=== PATIENT | male | born 1995 | race Caucasian/White ===

== ENCOUNTER 2020-01-13 17:35 | Inpatient (IN) | payer BC, SELFPAY ==
[2020-01-13] VITALS (9 sets, daily range): BP systolic 110–146; BP diastolic 85–97; PULSE 106–125; RESP 18–26; TEMP 37.6–38.8; O2SAT 95–97; BMI 43.0; BMI 42.7
[2020-01-13] MEDS: Acetaminophen 500 MG Tablet 1000 MG PO (17:57)
[2020-01-13] MEDS: Ondansetron 4 MG/2 ML Vial IV (17:58)
--- NOTE | 2020-01-13 18:02 | ED.DCSUM_ITS ---
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, he has no specific direct exposure to any of them, he has no history of [place] PE DVT shortness of breath COPD or any cardiopulmonary disorders his only conditions bipolar disorder which is well controlled he simply reports persistent harsh cough vomiting body ache and fever He presents with a heart rate of 125 temperature 101.8 pulse ox 97% on room air awake and alert blood pressure within normal range Past Medical History - Allergies and Home Meds Allergies/Adverse Reactions: Allergies No Known Allergies Allergy (Verified 06/13/16 18:28) Primary Care Physician: Godfrey Lima MD [STAFF PHYSICIAN] - Past Medical History: - - Denies except for bipolar disorder Smoking Status: Never smoker Review of Systems General: Reports: Fever. Denies: Chills, Sweats Eyes: Denies: Visual changes - bilaterally, Diplopia ENT: Denies: Rhinorrhea, Sore throat Cardiovascular: Denies: Chest pain, Palpitations Respiratory: Reports: Dyspnea, Cough. Denies: Dyspnea on exertion Gastrointestinal: Reports: Vomiting. Denies: Abdominal pain, Nausea, Diarrhea, Melena, Hematochezia Genitourinary: Denies: Dysuria, Hematuria, Frequency Musculoskeletal: Denies: Back pain, Extremity Pain Skin: Denies: Rash, Wounds Neurological: Denies: Headache, Weakness, Numbness Physical Exam Vital Signs/Narrative: Vital Signs Temp Pulse Resp BP Pulse Ox 01/13/20 17:40 101.8 F H 125 H 18 137/96 H 96 01/13/20 17:37 101.8 F H 125 H 18 137/96 H 96 General: Well nourished, Well developed, No Acute Distress Head: Normocephalic, Atraumatic Eyes: Perrl, EOMI ENT: Moist mucous membranes, No rhinorrhea Neck: Supple, Nontender Cardiovascular: Regular rate, Regular rhythm, No murmurs, Tachycardia Respiratory: No distress, CTA bilaterally, Chest nontender Abdomen: Soft, Nontender, Nondistended, Normal bowel sounds Back: Nontender, Normal Inspection Extremities: Nontender, No edema Skin: Normal color, No rash Neurological: Alert, Oriented x3, Cranial nerves II-XII grossly intact, Normal Strength, Normal Sensation Psychological: Normal affect, Normal Mood Diagnostic/Tx/Re-eval - Medical Decision Making Given all the above he will go ED screening evaluation labs x-ray fluids albuterol via handheld puffer antipyretics Patient's ED screening evaluation shows slight elevation of the white blood cell count creatinine slightly elevated, no old labs available chest x-ray unremarkable he states he still has the cough and the body ache his heart rates down from 125 to about 105 given all the above given the concern for coronavirus other occult infections we spoke with the hospitalist arrange for admission for further management Admit stable Impression fever cough suspect COVID-19 ED Disposition - Plan for ED Patient: Diagnosis: Fever cough suspect COVID-19 Referrals: Godfrey Lima MD [STAFF PHYSICIAN] -
[2020-01-13 18:05] LABS: Absolute Lymphocyte Count 0.91 X10^3/uL (0.83-4.51); Absolute Neutrophil Count 11.4 X10^3/uL (2.0-7.7); Basophil# 0.02 X10^3/uL; Basophil% 0.1 % (0-1); Eosinophil# 0.06 X10^3/uL; Eosinophils% 0.4 % (0-5); Hemoglobin 14.6 g/dL (13.0-16.5); Lymphocyte # 0.91 X10^3/ul (4.0); Lymphocyte % 6.8 % (19-41); Mean Corpuscular Hgb 28.2 pg (27.0-32.0); Mean Corpuscular Volume 83.2 fL (80-94); Mean Platelet Vol. 10.9 fl (6.2-12.0); Monocyte# 0.98 X10^3/uL; Monocyte% 7.3 % (0-10); NRBC Flagged by Analyzer 0 % (0-5); Neutrophil # 11.37 X10^3/uL (2.7-7.7); Neutrophil % 85.1 % (47-70); Platelet Count 257 K/mm3 (150-450); RBC Distribution Width SD 42.5 fl (35.1-43.9); Red Blood Count 5.17 M/mm3 (4.6-6.2); White Blood Count 13.4 K/mm3 (4.4-11.0)
[2020-01-13 18:23] LABS: ALB/GLOB Ratio 0.7 RATIO (0.9-2.4); AST(SGOT) 51 U/L (15-37); Alanine Aminotransfer ALT/SGPT 32 U/L (16-61); Albumin, Serum 3.7 g/dL (3.2-5.0); Alkaline Phosphatase 95 U/L (45-117); Anion Gap 8 (5-15); BUN 11 mg/dL (7-18); BUN/Creat Ratio 8.3 RATIO (10-20); Calcium,Total 9.4 mg/dL (8.5-10.1); Chloride 101 mmol/L (98-107); Creatinine, Serum 1.32 mg/dL (0.70-1.30); EST Glomerular Filtration Rate 71 mL/min (>60); Est Glom Filt Rate - Afr Amer 86 mL/min (>60); Estimated Creatinine Clearance 95.53 ml/min; Globulin 5.2 g/dL (2.2-4.2); Glucose 107 mg/dL (74-106); Potassium 3.7 mmol/L (3.5-5.1); Protein, Total 8.9 g/dL (6.4-8.2); Sodium Level 133 mmol/L (136-145)
[2020-01-13 18:25] LABS: Lactic Acid 0.9 mmol/L (0.4-1.9)
--- NOTE | 2020-01-13 18:35 | RAD_ITS ---
STUDY: X-RAY CHEST REASON FOR EXAM: Male, 25 years old. POSITIVE COVID. FEVER AND COUGH. TECHNIQUE: Single AP portable view of the chest. COMPARISON: 10/23/2016. FINDINGS: Normal lung volumes. Focal pulmonary opacity in the left lung base not present previously. This could represent focal atelectasis or infiltrate. No effusions. Right lung is clear. Normal size heart. Normal mediastinum and autumn. Normal visualized pulmonary arteries. Normal visualized aortic arch and descending thoracic aorta. There is mild dextroscoliosis of the thoracic spine. Normal visualized ribs, clavicles, and shoulders. There is no demonstrated abnormality of the visualized soft tissue structures of the upper abdomen. RAD/Chest 1 View (Portable) IMPRESSION: Focal pulmonary opacity in the left lung base not present previously. This could represent focal atelectasis or infiltrate. Suggest CT scan for further evaluation. Electronically Signed: Bairon Chow MD at 18:57 EST , Service support ,
--- NOTE | 2020-01-13 19:15 | PCM.HP.STD ---
Problem List (1) Sepsis Status: Acute Qualifiers: Sepsis type: sepsis due to unspecified organism Sepsis acute organ dysfunction status: unspecified Qualified Code(s): A41.9 - Sepsis, unspecified organism (2) Suspected COVID-19 virus infection Status: Acute (3) Pneumonia Status: Acute Qualifiers: Pneumonia type: due to unspecified organism Laterality: unspecified laterality Lung location: unspecified part of lung Qualified Code(s): J18.9 - Pneumonia, unspecified organism (4) Morbid obesity Status: Chronic (5) Bipolar disorder Status: Chronic Qualifiers: Active/Remission status: remission status unspecified Qualified Code(s): F31.9 - Bipolar disorder, unspecified (6) Cannabis use disorder, mild, abuse Status: Chronic History of Present Illness Date of Admission: 01/13/20 Chief Complaint: Fever, body aches, Nausea, Abdominal cramping, Cough, Dyspnea, Headache The patient is a 25 y/o M w/ PMHx: Morbid Obesity, Bipolar disorder who presents to the [facility] ED on 01/13/20, [employer] or [employer]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 He noted having been tested 2 weeks prior per campus protocol and was negative at that time. 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 work-up in the ED included T101.8, heart rate 125, BP 137/96, respiratory rate 18, 96% on room air, CBC with WC 13.4, hemoglobin 14.6, platelet 257 with left shift, no evidence of lymphopenia, CMP with sodium 133, BUN/1011/1.32, glucose 107, lactic acid 0.9, total bilirubin 0.80, AST/ALT 51/32, Covid testing pending, chest x-ray with a focal pulmonary opacity left lung base possibly atelectasis versus infiltrate. In the ED patient administered normal saline, Zofran, morphine, albuterol inhaler ration x1, Tylenol. Past Medical History Past Medical History (Chronic Problems): Chronic Problems Morbid obesity (Chronic) Bipolar disorder (Chronic) Cannabis use disorder, mild, abuse (Chronic) Allergies No Known Allergies Allergy (Verified 06/13/16 18:28) Home Medications: Ambulatory Orders Medication Instructions Recorded No Known/Unobtainable [No Known 06/13/16 Home Medications] Surgical History: no surgical history Psychiatric History: Anxiety, Bipolar, Depression Lives: - - Patient currently lives in the dorms at [facility]. Smoking Status: Never smoker Tobacco Use: Non-smoker Alcohol: None Drugs: Marijuana - Patient notes occasional marijuana usage. - *Family History Maternal History Items: - - Mother with a history of thyroid disease. Paternal History Items: High Cholesterol, Hypertension Review of Systems Constitutional: Reports: Anorexia, Chills, Fever, Malaise, Weakness, Fatigue. Denies: Weight Change HEENT: Reports: Head Aches, Sinus Congestion. Denies: Sinus Drainage Cardiovascular: Denies: Chest Pain, Palpitations Respiratory: Reports: Cough, Shortness of Breath, Shortness of breath upon exertion. Denies: Shortness of breath at rest, Sputum production, Wheezing Gastrointestinal: Reports: Abdominal Pain, Nausea. Denies: Constipation, Diarrhea, Vomiting Genitourinary: Denies: Dysuria Musculoskeletal: Reports: Joint Pain, Muscle pain. Denies: Joint Tenderness Skin: Denies: Rash, Wounds Neurological: Denies: Numbness, Tingling, Focal weakness Psychiatric: Reports: Anxiety, Depression. Denies: Homicidal Ideations, Suicidal Ideations Hematologic/ Lymphatic: Denies: Easy Bruising, Easy Bleeding VTE Information - Inpt Only VTE Present on Admission: No VTE Mechan Device Prophylaxis: SCD's VTE Pharm Prophylaxis ordered?: Yes Subjective: Patient seated upright in ED bed, fatigued appearing, occasional dry cough, mildly diaphoretic, still somewhat tachycardic. Objective: Physical Examination: General: awake, alert, oriented x 3 and cooperative, seated upright in the ED bed, fatigued, ill-appearing. Skin: Flushed skin color, normal turgor, no icterus, no cyanosis. HEENT: AT/NC, EOMI, PERRLA, dry MM, no carotid bruits or JVD noted however thickened neck makes examination difficult. Lungs: Diminished breath sounds bilaterally, greater bases, moderate effort, occasional dry harsh coughing, no rales, wheezing or rhonchi. Heart: Tachycardic with regular rhythm; no gallop, rub audible. Abdomen: soft, obese, denies discomfort with palpation with no rebound or guarding, ND, normal BS, no HSM. Extremities: no cyanosis, clubbing, or edema. Neurological: patient awake, alert, oriented x 3; cognitive function intact; pupils equally reactive to light and accomodation; cranial nerves II-XII grossly normal, moving all 4 extremities, no focal deficits, strength moderately to severely global decrease secondary to acute presentation. Psychiatric: affect appears fatigued, ill-appearing, no acute evidence of depressive or anxiety feelings. - Physical Exam Vitals/I&O's: Vital Signs Temp Pulse Resp BP Pulse Ox 101.8 F H 125 H 18 137/96 H 96 01/13/20 17:40 01/13/20 17:40 01/13/20 17:40 01/13/20 17:40 01/13/20 17:40 Oxygen Delivery Method Room Air Weight: 317 lb 0.395 oz Body Mass Index (BMI) 43.0 Laboratory Results 01/13/20 17:55: WBC 13.4 H, RBC 5.17, Hgb 14.6, Hct 43.0, MCV 83.2, MCH 28.2, MCHC 34.0, RDW Std Deviation 42.5, RDW Coeff of Bulmaro 14.0, Plt Count 257, MPV 10.9, Immature Gran % (Auto) 0.300, Neut % (Auto) 85.1 H, Lymph % (Auto) 6.8 L, Bibb % (Auto) 7.3, Eos % (Auto) 0.4, Baso % (Auto) 0.1, Absolute Neuts (auto) 11.4 H, Absolute Lymphs (auto) 0.91, Nucleated RBC % 0 01/13/20 17:55: Sodium 133 L, Potassium 3.7, Chloride 101, Carbon Dioxide 24.0, Anion Gap 8, BUN 11, Creatinine 1.32 H, Estim Creat Clear Calc 95.53, Est GFR (MDRD) Af Amer 86, Est GFR (MDRD) Non-Af 71, BUN/Creatinine Ratio 8.3 L, Glucose 107 H, Calcium 9.4, Total Bilirubin 0.80, AST 51 H, ALT 32, Alkaline Phosphatase 95, Total Protein 8.9 H, Albumin 3.7, Globulin 5.2 H, Albumin/Globulin Ratio 0.7 L 01/13/20 17:55: Lactic Acid 0.9 01/13/20 18:18: COVID-19 (FRANDY) Pending Current Medications Sodium Chloride () 1,000 mls @ 999 mls/hr IV .Q1H1M ONE Stop: 01/13/20 19:37 Assessment/Plan All Active Problems Sepsis (Acute) Suspected COVID-19 virus infection (Acute) Pneumonia (Acute) The patient is a 25 y/o M w/ PMHx: Morbid Obesity, Bipolar disorder who presents to the [facility] ED on 01/13/20, [employer] or [employer]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 1. Acute Sepsis secondary to LLL Pneumonia, Possible CAP, Higher Suspicion Acute Viral Syndrome, COVID-19: Despite negative COVID ED testing, high suspicion and given symptoms only x nearing 48 hours with high risk environment, still feel likelihood of true positive COVID status, will request ID input especially given patient in close contact with [employer] girls [employer] at local [facility] 5 days preceding his onset of symptoms. Will plan to continue with admission to COVID unit, maintain on precautions, maintain on oxygen with wean as tolerated to room air, continue PRN albuterol, maintain on IV Rocephin and Azithromycin with pending COVID lab panel still higher suspicion for positive Covid status, de-escalate off antibiotic therapy once appropriate, HOB, IS parameters w/ pending sputum culture, respiratory viral panel and urine antigens, will obtain procalcitonin, fibrinogen, INR, BNP, CRP, CPK, Ferritin, LDH, d-dimer, continue supportive care including q 2 hour turning including prone given no prone bed availability and judicious hydration, closely monitor for worsening status for ARDS and multiorgan failure. Given no evidence of hypoxia will hold on addition of decadron, may add if appropriate. 2. Hyponatremia, mild: Admission sodium 133, suspect likely dehydrated, judiciously hydrating given suspected Covid status, repeat CMP in a.m. 3. Suspected renal insufficiency: Admission BUN/creatinine 01/09.32, prior baseline noted 1.1, continue judicious hydration given suspected Covid status, repeat CMP in a.m. 4. Bipolar disorder: Notes well controlled, not on medications, continue new to encourage outpatient close follow-up as needed. 5. Cannabis usage, intermittent: Encouraged cessation. 6. Morbid Obesity: Weight loss and lifestyle changes encouraged. 7. DVT prophylaxis: SCDs, Lovenox. OBSV E&M: [id number] Initial observation care L3
[2020-01-13 19:46] LABS: Probe Check PASS; Specimen Processing Control PASS
[2020-01-13] MEDS: 0.9% Normal Saline 1,000 ML 999 ML IV (19:47)
[2020-01-13] MEDS: Morphine 4 MG/ML Syringe IV (19:47)
--- NOTE | 2020-01-13 20:09 | ED.RN ---
pt ambulated in room. starting pulse ox 96. hr 117. pt ambulated around bed 8 times. denies sob. pulse ox stays consistent at 95%. hr increased to 127
[2020-01-13 22:23] LABS: International Normalized Ratio 1.3; Prothrombin Time (Protime)PT. 15.2 SECONDS (11.7-14.9)
[2020-01-13 22:24] LABS: Fibrinogen 785 mg/dl (203-444)
[2020-01-13 22:37] LABS: D-Dimer Quantitative (DVT/PE) 0.92 FEU/ug/m (0.27-0.49)
[2020-01-13] MEDS: 0.9% Normal Saline 1,000 ML 125 ML IV (22:42)
[2020-01-13] MEDS: Famotidine 20 MG Tablet PO (22:42)
[2020-01-13] MEDS: Enoxaparin 40 MG/0.4 ML Syringe SC (22:42)
[2020-01-13] MEDS: 0.9% Saline Lock 10 ML Syringe IV ×2 (22:44→23:30)
[2020-01-13 22:50] LABS: Ferritin 312 ng/mL (26-388); LDH 264 U/L (87-241)
[2020-01-14] VITALS (8 sets, daily range): BP systolic 117–140; BP diastolic 64–83; PULSE 98–118; RESP 17–27; TEMP 37.2–39.4; O2SAT 94–98
[2020-01-14] MEDS: 0.9% Saline Lock 10 ML Syringe IV ×5 (00:37→22:24)
[2020-01-14] MEDS: Ondansetron 4 MG/2 ML Vial IV (00:37)
[2020-01-14] MEDS: guaiFENesin 10 ML UDC (200MG/10ML) 20 ML PO ×4 (00:40→22:32)
[2020-01-14] MEDS: 0.9% Normal Saline 1,000 ML 999 ML IV (04:46)
[2020-01-14] MEDS: Ketorolac 15 MG/ML Vial IV (04:51)
[2020-01-14 06:33] LABS: Absolute Lymphocyte Count 0.74 X10^3/uL (0.83-4.51); Absolute Neutrophil Count 10.6 X10^3/uL (2.0-7.7); Basophil# 0.02 X10^3/uL; Basophil% 0.2 % (0-1); Hemoglobin 12.4 g/dL (13.0-16.5); Lymphocyte # 0.74 X10^3/ul (4.0); Mean Corp Hgb Conc 32.6 g/dL (32-36); Mean Corpuscular Hgb 28.1 pg (27.0-32.0); Mean Corpuscular Volume 86.2 fL (80-94); Mean Platelet Vol. 11.3 fl (6.2-12.0); Monocyte# 0.89 X10^3/uL; Monocyte% 7.2 % (0-10); NRBC Flagged by Analyzer 0 % (0-5); Neutrophil # 10.62 X10^3/uL (2.7-7.7); POSITIVE MORPHOLOGY YES; Platelet Count 224 K/mm3 (150-450); RBC Distribution Width SD 44.3 fl (35.1-43.9); Red Blood Count 4.41 M/mm3 (4.6-6.2); White Blood Count 12.3 K/mm3 (4.4-11.0)
[2020-01-14 06:39] LABS: Differential Indicated SCAN CRITERIA MET
[2020-01-14 06:56] LABS: Differential Comment SCANNED; Platelet Estimate ADEQUATE (ADEQ)
[2020-01-14 07:02] LABS: ALB/GLOB Ratio 0.6 RATIO (0.9-2.4); AST(SGOT) 47 U/L (15-37); Alanine Aminotransfer ALT/SGPT 29 U/L (16-61); Albumin, Serum 2.9 g/dL (3.2-5.0); Alkaline Phosphatase 76 U/L (45-117); Anion Gap 10 (5-15); BUN 10 mg/dL (7-18); BUN/Creat Ratio 9.8 RATIO (10-20); Calcium,Total 7.8 mg/dL (8.5-10.1); Chloride 103 mmol/L (98-107); Creatinine, Serum 1.02 mg/dL (0.70-1.30); EST Glomerular Filtration Rate 96 mL/min (>60); Est Glom Filt Rate - Afr Amer 116 mL/min (>60); Estimated Creatinine Clearance 123.63 ml/min; Globulin 4.6 g/dL (2.2-4.2); Glucose 112 mg/dL (74-106); Potassium 3.6 mmol/L (3.5-5.1); Protein, Total 7.5 g/dL (6.4-8.2); Sodium Level 135 mmol/L (136-145)
[2020-01-14] MEDS: Enoxaparin 40 MG/0.4 ML Syringe SC ×2 (08:26→19:56)
[2020-01-14] MEDS: Famotidine 20 MG Tablet PO ×2 (08:26→19:56)
[2020-01-14] MEDS: Ensure Clear 120 ML Liquid PO (10:11)
--- NOTE | 2020-01-14 11:21 | PN_ITS ---
<MansoorHeather ENGRAVING SUPERVISOR - Last Filed: 01/14/20 11:33> Patient Problems: Active and Suspected Problems Sepsis (Acute) Suspected COVID-19 virus infection (Acute) Pneumonia (Acute) Subjective: Patient seen and examined. Reports general malaise. Reports dry cough, headache, fever, general body aches. Denies significant shortness of breath. - Physical Exam Vitals/I&O's: Vital Signs Temp Pulse Resp BP Pulse Ox 99.3 F H 104 H 18 120/78 95 01/14/20 08:24 01/14/20 08:33 01/14/20 08:24 01/14/20 08:24 01/14/20 08:24 Oxygen Delivery Method Room Air Weight: 315 lb 0.649 oz Body Mass Index (BMI) 42.7 Intake and Output for Last 24 Hours 01/12/20 01/13/20 01/14/20 23:59 23:59 23:59 Intake Total 1759.17 / 1759.17 2845.83 / 2845.83 Output Total Balance 1759.17 / 1759.17 2844.83 / 2844.83 General: Alert, Oriented x3, Cooperative HEENT: Atraumatic, PERRLA, EOMI, Normocephalic Neck: Supple, No JVD, Negative Carotid Bruits Lungs: Clear to auscultation, Diminished Cardiovascular: Regular Rhythm, No murmurs, Tachycardic Abdomen: Bowel Sounds Present, Soft, Non Tender Extremities: No clubbing, No cyanosis, No edema, Capillary Refill Less than 3 Seconds Skin: No rashes, No breakdown Musculoskeletal: No Tenderness to Palpation of Joints or Extremities Neurological: Cranial nerves II-XII grossly intact, Neuro grossly intact Psych/Mental Status: Normal Affect, Appropriate Microbiology Past 72 Hours 01/14/20 00:45 Sputum, Expectorated/Coughed Gram Stain - Final 01/14/20 00:35 Urine, Clean Catch Legionella Antigen - Final 01/14/20 00:35 Urine, Clean Catch Streptococcus pneumoniae Antigen (M - Final 01/13/20 18:18 Interface Orders Respiratory Panel (PCR) - Final Laboratory Results 01/13/20 17:55: WBC 13.4 H, RBC 5.17, Hgb 14.6, Hct 43.0, MCV 83.2, MCH 28.2, MCHC 34.0, RDW Std Deviation 42.5, RDW Coeff of Bulmaro 14.0, Plt Count 257, MPV 10.9, Immature Gran % (Auto) 0.300, Neut % (Auto) 85.1 H, Lymph % (Auto) 6.8 L, [place] % (Auto) 7.3, Eos % (Auto) 0.4, Baso % (Auto) 0.1, Absolute Neuts (auto) 11.4 H, Absolute Lymphs (auto) 0.91, Nucleated RBC % 0 01/13/20 17:55: Sodium 133 L, Potassium 3.7, Chloride 101, Carbon Dioxide 24.0, Anion Gap 8, BUN 11, Creatinine 1.32 H, Estim Creat Clear Calc 95.53, Est GFR (MDRD) Af Amer 86, Est GFR (MDRD) Non-Af 71, BUN/Creatinine Ratio 8.3 L, Glucose 107 H, Calcium 9.4, Total Bilirubin 0.80, AST 51 H, ALT 32, Alkaline Phosphatase 95, Total Protein 8.9 H, Albumin 3.7, Globulin 5.2 H, Albumin/Globulin Ratio 0.7 L 01/13/20 17:55: Lactic Acid 0.9 01/13/20 17:55: B-Natriuretic Peptide Pending 01/13/20 17:55: PT 15.2 H, INR 1.3, Fibrinogen 785 H, D-Dimer Quant (PE/DVT) 0.92 H* 01/13/20 17:55: Ferritin 312, Lactate Dehydrogenase 264 H, Troponin I < 0.015, C-React Prot Ext Range 122.00 H 01/13/20 17:55: Procalcitonin Pending 01/13/20 18:18: COVID-19 (FRANDY) Negative 01/14/20 05:25: WBC 12.3 H, RBC 4.41 L, Hgb 12.4 L, Hct 38.0 L, MCV 86.2, MCH 28.1, MCHC 32.6, RDW Std Deviation 44.3 H, RDW Coeff of Bulmaro 14.0, Plt Count 224, MPV 11.3, Immature Gran % (Auto) 0.600, Neut % (Auto) 86.0 H, Lymph % (Auto) 6.0 L, [place] % (Auto) 7.2, Eos % (Auto) 0.0, Baso % (Auto) 0.2, Absolute Neuts (auto) 10.6 H, Absolute Lymphs (auto) 0.74 L, Nucleated RBC % 0, Differential Comment SCANNED, Platelet Estimate ADEQUATE 01/14/20 05:25: Sodium 135 L, Potassium 3.6, Chloride 103, Carbon Dioxide 22.0, Anion Gap 10, BUN 10, Creatinine 1.02, Estim Creat Clear Calc 123.63, Est GFR (MDRD) Af Amer 116, Est GFR (MDRD) Non-Af 96, BUN/Creatinine Ratio 9.8 L, Glucose 112 H, Calcium 7.8 L, Total Bilirubin 0.50, AST 47 H, ALT 29, Alkaline Phosphatase 76, Total Protein 7.5, Albumin 2.9 L, Globulin 4.6 H, Albumin/Globulin Ratio 0.6 L Current Medications Acetaminophen (Acetaminophen 325 Mg Tablet) 650 mg PO Q6H PRN PRN PRN Reason: Pain Score 1-10/Temp > 100.7 F Al Hydroxide/Mg Hydroxide (Mag Hydrox/Al Hydrox/Simeth 30 Ml Udc) 30 ml PO Q6H PRN PRN PRN Reason: Gastric Burning Albuterol Sulfate (Albuterol Ih 8.5 Gm (Proair) Inhaler (200 Puffs)) 2 puff INHALATION Q4H PRN PRN PRN Reason: dyspnea, wheezing Enoxaparin Sodium (Enoxaparin 40 Mg/0.4 Ml Syringe) 40 mg SC BID [facility] Last Admin: 01/14/20 08:26 Dose: 40 mg Documented by: Famotidine (Famotidine 20 Mg Tablet) 20 mg PO BID [facility] Last Admin: 01/14/20 08:26 Dose: 20 mg Documented by: Guaifenesin (Guaifenesin 10 Ml Udc (200mg/10ml)) 20 ml PO Q4H PRN PRN PRN Reason: COUGH Last Admin: 01/14/20 10:11 Dose: 20 ml Documented by: Ceftriaxone Sodium 2 gm/ (Sodium Chloride) 50 mls @ 100 mls/hr IV Q24H [facility] Last Infusion: 01/14/20 01:30 Dose: Infused Documented by: Azithromycin 500 mg/ Dextrose 255 mls @ 250 mls/hr IV Q24H [facility] Last Infusion: 01/13/20 23:44 Dose: Infused Documented by: Sodium Chloride () 250 mls @ 15 mls/hr IV .[id number] PRN PRN Reason: Saline Flush Sodium Chloride () 250 mls @ 15 mls/hr IV .[id number] PRN PRN Reason: Additional IVPB Infusion Magnesium Hydroxide (Magnesium Hydroxide 30 Ml Udc) 30 ml PO DAILY PRN PRN PRN Reason: Constipation Melatonin (Melatonin 3 Mg Tablet) 3 mg PO QHS PRN PRN PRN Reason: INSOMNIA Ondansetron HCl (Ondansetron 4 Mg/2 Ml Vial) 4 mg IV Q8H PRN PRN PRN Reason: NAUSEA/VOMITING Last Admin: 01/14/20 00:37 Dose: 4 mg Documented by: Prochlorperazine Edisylate (Prochlorperazine 10 Mg/2 Ml Vial) 5 mg IV Q4H PRN PRN PRN Reason: Breakthrough nausea/vomiting Psyllium Hydrophilic Mucilloid (Psyllium 1 Packet) 1 packet PO DAILY PRN PRN PRN Reason: Constipation Senna/Docusate Sodium (Senna/Docusate Sodium 1 Tablet) 2 tablet PO BID PRN PRN PRN Reason: Constipation Sodium Chloride (0.9% Saline Lock 10 Ml Syringe) 10 - 40 ml IV UD PRN PRN Reason: SALINE FLUSH Last Admin: 01/14/20 11:12 Dose: 10 ml Documented by: Throat Lozenges (Benzocaine/Menthol 1 Lozenge) 1 lozenge MUCOUS MEM Q2H PRN PRN PRN Reason: SORE THROAT Medical Necessity - Tobacco Use Smoking Status: Never smoker Tobacco Use: Non-smoker Assessment/Plan All Active Problems Sepsis (Acute) Suspected COVID-19 virus infection (Acute) Pneumonia (Acute) 1. Acute sepsis secondary to left lower lobe pneumonia with possible viral syndrome/[id number] of chest shows left lower lobe consolidation. Atypical for Covid pneumonia. Negative for PE. Covid negative however less than 48 hours symptom onset. Infectious disease consulted. Continue IV azithromycin and IV Rocephin. As needed albuterol inhaler. Possible repeat Covid testing pending ID recommendations. 2. Mild dehydration- resolved with IV fluids. 3. Bipolar disorder-not on regimen. 4. Intermittent cannabis use-encouraged cessation. 5. Morbid obesity-encouraged diet and lifestyle modifications. DVT prophylaxis-SCDs, Lovenox This patient was seen by [facility] Hanley under the supervision of Dr. García. <Melvin García - Last Filed: 01/14/20 14:37> - Physical Exam Vitals/I&O's: Vital Signs Temp Pulse Resp BP Pulse Ox 99.5 F H 102 H 18 129/71 H 98 01/14/20 14:15 01/14/20 14:15 01/14/20 14:15 01/14/20 14:15 01/14/20 14:15 Oxygen Delivery Method Room Air Weight: 142.9 kg Body Mass Index (BMI) 42.7 Intake and Output for Last 24 Hours 01/12/20 01/13/20 01/14/20 23:59 23:59 23:59 Intake Total 1759.17 / 1759.17 3445.83 / 3445.83 Output Total Balance 1759.17 / 1759.17 3444.83 / 3444.83 Microbiology Past 72 Hours 01/14/20 00:45 Sputum, Expectorated/Coughed Gram Stain - Final 01/14/20 00:35 Urine, Clean Catch Legionella Antigen - Final 01/14/20 00:35 Urine, Clean Catch Streptococcus pneumoniae Antigen (M - Final 01/13/20 18:18 Interface Orders Respiratory Panel (PCR) - Final Laboratory Results 01/13/20 17:55: WBC 13.4 H, RBC 5.17, Hgb 14.6, Hct 43.0, MCV 83.2, MCH 28.2, MCHC 34.0, RDW Std Deviation 42.5, RDW Coeff of Bulmaro 14.0, Plt Count 257, MPV 10.9, Immature Gran % (Auto) 0.300, Neut % (Auto) 85.1 H, Lymph % (Auto) 6.8 L, [place] % (Auto) 7.3, Eos % (Auto) 0.4, Baso % (Auto) 0.1, Absolute Neuts (auto) 11.4 H, Absolute Lymphs (auto) 0.91, Nucleated RBC % 0 01/13/20 17:55: Sodium 133 L, Potassium 3.7, Chloride 101, Carbon Dioxide 24.0, Anion Gap 8, BUN 11, Creatinine 1.32 H, Estim Creat Clear Calc 95.53, Est GFR (MDRD) Af Amer 86, Est GFR (MDRD) Non-Af 71, BUN/Creatinine Ratio 8.3 L, Glucose 107 H, Calcium 9.4, Total Bilirubin 0.80, AST 51 H, ALT 32, Alkaline Phosphatase 95, Total Protein 8.9 H, Albumin 3.7, Globulin 5.2 H, Albumin/Globulin Ratio 0.7 L 01/13/20 17:55: Lactic Acid 0.9 01/13/20 17:55: B-Natriuretic Peptide 2.3 01/13/20 17:55: PT 15.2 H, INR 1.3, Fibrinogen 785 H, D-Dimer Quant (PE/DVT) 0.92 H* 01/13/20 17:55: Ferritin 312, Lactate Dehydrogenase 264 H, Troponin I < 0.015, C-React Prot Ext Range 122.00 H 01/13/20 17:55: Procalcitonin 0.14 H 01/13/20 18:18: COVID-19 (FRANDY) Negative 01/14/20 05:25: WBC 12.3 H, RBC 4.41 L, Hgb 12.4 L, Hct 38.0 L, MCV 86.2, MCH 28.1, MCHC 32.6, RDW Std Deviation 44.3 H, RDW Coeff of Bulmaro 14.0, Plt Count 224, MPV 11.3, Immature Gran % (Auto) 0.600, Neut % (Auto) 86.0 H, Lymph % (Auto) 6.0 L, [place] % (Auto) 7.2, Eos % (Auto) 0.0, Baso % (Auto) 0.2, Absolute Neuts (auto) 10.6 H, Absolute Lymphs (auto) 0.74 L, Nucleated RBC % 0, Differential Comment SCANNED, Platelet Estimate ADEQUATE 01/14/20 05:25: Sodium 135 L, Potassium 3.6, Chloride 103, Carbon Dioxide 22.0, Anion Gap 10, BUN 10, Creatinine 1.02, Estim Creat Clear Calc 123.63, Est GFR (MDRD) Af Amer 116, Est GFR (MDRD) Non-Af 96, BUN/Creatinine Ratio 9.8 L, Glucose 112 H, Calcium 7.8 L, Total Bilirubin 0.50, AST 47 H, ALT 29, Alkaline Phosphatase 76, Total Protein 7.5, Albumin 2.9 L, Globulin 4.6 H, Albumin/Globulin Ratio 0.6 L Current Medications Acetaminophen (Acetaminophen 325 Mg Tablet) 650 mg PO Q6H PRN PRN PRN Reason: Pain Score 1-10/Temp > 100.7 F Last Admin: 01/14/20 11:24 Dose: 650 mg Documented by: Al Hydroxide/Mg Hydroxide (Mag Hydrox/Al Hydrox/Simeth 30 Ml Udc) 30 ml PO Q6H PRN PRN PRN Reason: Gastric Burning Albuterol Sulfate (Albuterol Ih 8.5 Gm (Proair) Inhaler (200 Puffs)) 2 puff INHALATION Q4H PRN PRN PRN Reason: dyspnea, wheezing Enoxaparin Sodium (Enoxaparin 40 Mg/0.4 Ml Syringe) 40 mg SC BID [facility] Last Admin: 01/14/20 08:26 Dose: 40 mg Documented by: Famotidine (Famotidine 20 Mg Tablet) 20 mg PO BID [facility] Last Admin: 01/14/20 08:26 Dose: 20 mg Documented by: Guaifenesin (Guaifenesin 10 Ml Udc (200mg/10ml)) 20 ml PO Q4H PRN PRN PRN Reason: COUGH Last Admin: 01/14/20 10:11 Dose: 20 ml Documented by: Ceftriaxone Sodium 2 gm/ (Sodium Chloride) 50 mls @ 100 mls/hr IV Q24H [facility] Last Infusion: 01/14/20 01:30 Dose: Infused Documented by: Sodium Chloride () 250 mls @ 15 mls/hr IV .[id number] PRN PRN Reason: Saline Flush Sodium Chloride () 250 mls @ 15 mls/hr IV .[id number] PRN PRN Reason: Additional IVPB Infusion Magnesium Hydroxide (Magnesium Hydroxide 30 Ml Udc) 30 ml PO DAILY PRN PRN PRN Reason: Constipation Melatonin (Melatonin 3 Mg Tablet) 3 mg PO QHS PRN PRN PRN Reason: INSOMNIA Ondansetron HCl (Ondansetron 4 Mg/2 Ml Vial) 4 mg IV Q8H PRN PRN PRN Reason: NAUSEA/VOMITING Last Admin: 01/14/20 00:37 Dose: 4 mg Documented by: Prochlorperazine Edisylate (Prochlorperazine 10 Mg/2 Ml Vial) 5 mg IV Q4H PRN PRN PRN Reason: Breakthrough nausea/vomiting Psyllium Hydrophilic Mucilloid (Psyllium 1 Packet) 1 packet PO DAILY PRN PRN PRN Reason: Constipation Senna/Docusate Sodium (Senna/Docusate Sodium 1 Tablet) 2 tablet PO BID PRN PRN PRN Reason: Constipation Sodium Chloride (0.9% Saline Lock 10 Ml Syringe) 10 - 40 ml IV UD PRN PRN Reason: SALINE FLUSH Last Admin: 01/14/20 11:12 Dose: 10 ml Documented by: Throat Lozenges (Benzocaine/Menthol 1 Lozenge) 1 lozenge MUCOUS MEM Q2H PRN PRN PRN Reason: SORE THROAT Assessment/Plan This patient was seen in conjunction with [facility] . I have independently interviewed and examined the patient and reviewed pertinent historical, laboratory, and other data. Please refer to [facility] note for details of this patient's presentation, findings, and recommendations. I have reviewed [facility] note and concur with documented findings. In brief, patient is 25-year-old gentleman admitted with cough fever aches nausea and generalized malaise. A suspicion of COVID-19 pneumonia and 13. His COVID-19 assay was negative however suspicion remains high admitted to regular nursing floor with consultation placed infectious disease Physical Examination: GENERAL: Ill-looking HEENT: Atraumatic; EYES; Anicteric, Normal Conjunctiva NECK; supple, normal thyroid, RESPIRATORY: Diminished to auscultation CARDIOVASCULAR: Regular S1 S2, GI: soft, normoactive bowel sounds, : No Renal angle tenderness; EXTREMITIES: No edema, no clubbing, MUSCULOSKELETAL: no muscle waisting NEURO: Awake; no lateralizing signs. SKIN: No Rash PSYCH; Flat affect Assessment: 1. Suspected acute COVID-19 pneumonia 2. Sepsis secondary to #1 3. Bipolar disorder 4. Dehydration 5. Morbid obesity with BMI of 42.7 6. DVT prophylaxis Recommendations: 1. I have discussed the results of my overview and impressions with the patient 2. Options for management were reviewed Inpatient E&M: [id number] [facility] H[facility] L3
[2020-01-14] MEDS: Acetaminophen 325 MG Tablet 650 MG PO ×2 (11:24→17:28)
--- NOTE | 2020-01-14 11:51 | CON.PCM_ITS ---
Problem List (1) Suspected COVID-19 virus infection Status: Acute Reason for Consult: covid Consulted by: suspected covid History of Present Illness: The patient is a 25 year old M with h/o bipolar, presented yesterday with one day of fever, cough, aches, headache, nausea, not feeling well. No sick contacts. No change in taste/smell. No sputum. No prior h/o pneumonia. Came to ED, started on azithro/ceftriaxone for suspected CAP. Fever to 102.9. Not feeling any better today. Still dry cough. Full ROS performed and neg except as noted above. - Medical History Past Medical History (Chronic Problems): Chronic Problems Morbid obesity (Chronic) Bipolar disorder (Chronic) Cannabis use disorder, mild, abuse (Chronic) Allergies/Adverse Reactions: Allergies No Known Allergies Allergy (Verified 01/13/20 22:15) Home Medications: Ambulatory Orders Medication Instructions Recorded No Known/Unobtainable [No Known 06/13/16 Home Medications] - Social History Tobacco Use: non-smoker Vital Signs Temp Pulse Resp BP Pulse Ox 99.3 F H 104 H 18 120/78 95 01/14/20 08:24 01/14/20 08:33 01/14/20 08:24 01/14/20 08:24 01/14/20 08:24 Oxygen Delivery Method Room Air Weight: 142.9 kg Body Mass Index (BMI) 42.7 Microbiology Past 72 Hours 01/14/20 00:45 Gram Stain - Final Sputum, Expectorated/Coughed 01/14/20 00:35 Legionella Antigen - Final Urine, Clean Catch Streptococcus pneumoniae Antigen (M - Final 01/13/20 18:18 Respiratory Panel (PCR) - Final Interface Orders Laboratory Tests Past 24 Hrs 01/13/20 01/13/20 01/13/20 17:55 17:55 17:55 WBC 13.4 H RBC 5.17 Hgb 14.6 Hct 43.0 MCV 83.2 MCH 28.2 MCHC 34.0 RDW Std Deviation 42.5 RDW Coeff of Bulmaro 14.0 Plt Count 257 MPV 10.9 Immature Gran % (Auto) 0.300 Neut % (Auto) 85.1 H Lymph % (Auto) 6.8 L [place] % (Auto) 7.3 Eos % (Auto) 0.4 Baso % (Auto) 0.1 Absolute Neuts (auto) 11.4 H Absolute Lymphs (auto) 0.91 Nucleated RBC % 0 Differential Comment Platelet Estimate PT INR Fibrinogen D-Dimer Quant (PE/DVT) Sodium 133 L Potassium 3.7 Chloride 101 Carbon Dioxide 24.0 Anion Gap 8 BUN 11 Creatinine 1.32 H Estim Creat Clear Calc 95.53 Est GFR (MDRD) Af Amer 86 Est GFR (MDRD) Non-Af 71 BUN/Creatinine Ratio 8.3 L Glucose 107 H Lactic Acid 0.9 Calcium 9.4 Ferritin Total Bilirubin 0.80 AST 51 H ALT 32 Alkaline Phosphatase 95 Lactate Dehydrogenase Troponin I C-React Prot Ext Range B-Natriuretic Peptide Total Protein 8.9 H Albumin 3.7 Globulin 5.2 H Albumin/Globulin Ratio 0.7 L Procalcitonin COVID-19 (FRANDY) 01/13/20 01/13/20 01/13/20 17:55 17:55 17:55 WBC RBC Hgb Hct MCV MCH MCHC RDW Std Deviation RDW Coeff of Bulmaro Plt Count MPV Immature Gran % (Auto) Neut % (Auto) Lymph % (Auto) [place] % (Auto) Eos % (Auto) Baso % (Auto) Absolute Neuts (auto) Absolute Lymphs (auto) Nucleated RBC % Differential Comment Platelet Estimate PT 15.2 H INR 1.3 Fibrinogen 785 H D-Dimer Quant (PE/DVT) 0.92 H* Sodium Potassium Chloride Carbon Dioxide Anion Gap BUN Creatinine Estim Creat Clear Calc Est GFR (MDRD) Af Amer Est GFR (MDRD) Non-Af BUN/Creatinine Ratio Glucose Lactic Acid Calcium Ferritin 312 Total Bilirubin AST ALT Alkaline Phosphatase Lactate Dehydrogenase 264 H Troponin I < 0.015 C-React Prot Ext Range 122.00 H B-Natriuretic Peptide Pending Total Protein Albumin Globulin Albumin/Globulin Ratio Procalcitonin COVID-19 (FRANDY) 01/13/20 01/13/20 01/14/20 17:55 18:18 05:25 WBC 12.3 H RBC 4.41 L Hgb 12.4 L Hct 38.0 L MCV 86.2 MCH 28.1 MCHC 32.6 RDW Std Deviation 44.3 H RDW Coeff of Bulmaro 14.0 Plt Count 224 MPV 11.3 Immature Gran % (Auto) 0.600 Neut % (Auto) 86.0 H Lymph % (Auto) 6.0 L [place] % (Auto) 7.2 Eos % (Auto) 0.0 Baso % (Auto) 0.2 Absolute Neuts (auto) 10.6 H Absolute Lymphs (auto) 0.74 L Nucleated RBC % 0 Differential Comment SCANNED Platelet Estimate ADEQUATE PT INR Fibrinogen D-Dimer Quant (PE/DVT) Sodium Potassium Chloride Carbon Dioxide Anion Gap BUN Creatinine Estim Creat Clear Calc Est GFR (MDRD) Af Amer Est GFR (MDRD) Non-Af BUN/Creatinine Ratio Glucose Lactic Acid Calcium Ferritin Total Bilirubin AST ALT Alkaline Phosphatase Lactate Dehydrogenase Troponin I C-React Prot Ext Range B-Natriuretic Peptide Total Protein Albumin Globulin Albumin/Globulin Ratio Procalcitonin Pending COVID-19 (FRANDY) Negative 01/14/20 05:25 WBC RBC Hgb Hct MCV MCH MCHC RDW Std Deviation RDW Coeff of Bulmaro Plt Count MPV Immature Gran % (Auto) Neut % (Auto) Lymph % (Auto) [place] % (Auto) Eos % (Auto) Baso % (Auto) Absolute Neuts (auto) Absolute Lymphs (auto) Nucleated RBC % Differential Comment Platelet Estimate PT INR Fibrinogen D-Dimer Quant (PE/DVT) Sodium 135 L Potassium 3.6 Chloride 103 Carbon Dioxide 22.0 Anion Gap 10 BUN 10 Creatinine 1.02 Estim Creat Clear Calc 123.63 Est GFR (MDRD) Af Amer 116 Est GFR (MDRD) Non-Af 96 BUN/Creatinine Ratio 9.8 L Glucose 112 H Lactic Acid Calcium 7.8 L Ferritin Total Bilirubin 0.50 AST 47 H ALT 29 Alkaline Phosphatase 76 Lactate Dehydrogenase Troponin I C-React Prot Ext Range B-Natriuretic Peptide Total Protein 7.5 Albumin 2.9 L Globulin 4.6 H Albumin/Globulin Ratio 0.6 L Procalcitonin COVID-19 (FRANDY) - Other Studies Radiology: [] reviewed Other Studies: [] Route of nutrition/ use of supplements: [] Nutritional Intake: [] IV Site: [] [place] Catheter: [] - Physical Exam General: Alert, Oriented x3, Cooperative, - - ill appearing HEENT: Atraumatic, PERRLA, EOMI Neck: Supple, No Nodes Lungs: Diminished Cardiovascular: Regular rate, Regular Rhythm Abdomen: Soft, Non Tender, Non-Distended Extremities: No edema Skin: No rashes IV Site: Peripheral, without redness Musculoskeletal: No Tenderness to Palpation of Joints or Extremities Neurological: Cranial nerves II-XII grossly intact - Assessment/Plan Antibiotics: [] Assessment/Plan: [] Active and Suspected Problems Sepsis (Acute) Suspected COVID-19 virus infection (Acute) Pneumonia (Acute) Suspected covid - cxr with focal infiltrate, but no sputum. UAg neg. PCT pending. Mild rise in wbc. Lymphopenia this AM. Sx more consistent with covid than bacterial pneumonia. Will stop azithro today. Cont ceftriaxone for now. Not hypoxic, so will not start dex at this time. On lovenox 40mg bid for proph with mild elevation in d-dimer. Ok for discharge from ID perspective, could do 4 more days of augmentin, but overall I think this is covid. He had a test done yesterday outpt that is still pending. Covid pcr here was neg. Will see if antigen testing is available. Will follow, thank you.
[2020-01-14 13:38] LABS: BNP,B-Type NATRIURETIC PEPTIDE 2.3 pg/mL (0-100)
--- NOTE | 2020-01-14 13:50 | CASEMGMT ---
RN JUDY called patient in room for initial transition planning/care coordination assessment. RN JUDY introduced self and role at [facility]. Patient is alert and oriented. Patient willing to participate in assessment and is able to answer all questions appropriately. Care providers, pharmacy, and demographics verified. Patient wishes to discharge home, denies need for home health at this time. Patient states he has no further needs or concerns at this time. CM to follow for discharge planning needs that may arise. PCP: No PCPJUDY to provide list of PCPs Specialists: none Preferred Pharmacy: [facility] with [facility] retail at discharge. Insurance: [place] Prescription Benefit: yes Living Will/HPOA: none LNOK: mother Living Arrangements: Patient is currently staying in dorm at [facility] with elevator access. Patient states he is independent at home. Transportation: self DME/HHC: Patient denies DME or previous HHC. Will monitor for need for home oxygen at discharge. Patient has no preference of DME company Disposition Plan: Patient to discharge home with follow-up plans in place. Janna CHRISTIANSON, RN, CM
[2020-01-14 13:54] LABS: Procalcitonin 0.14 ng/mL (0.00-0.09)
[2020-01-14] MEDS: Ketorolac 30 MG/ML Syringe IV (22:24)
[2020-01-14] MEDS: MELATONIN 3 MG TABLET PO (22:24)
--- NOTE | 2020-01-14 23:42 | CT_ITS ---
STUDY: CTA CHEST REASON FOR EXAM: Male, 25 years old. ELEVATED D-DIMER, DYSPNEA, DRY COUGH, NAUSEA, FEVER, ELLIOTT, BODY ACHES X 2 DAYS, SUSPECT COVID RADIATION DOSAGE (If Supplied By Facility): CTDIvol = ( 17.42 ) mGy, DLP = ( 573.89 ) mGycm TECHNIQUE: The examination was performed with the intravenous administration of IV 100mL Isovue-370. Post-processing of the angiographic images was performed, with multiplanar reformation and 3D reconstruction. Individualized dose optimization techniques were used for this CT. COMPARISON: None. FINDINGS: Normal enhancement of the main pulmonary artery and right and left pulmonary arteries. Normal enhancement of the bilateral peripheral pulmonary arteries. There is no demonstrated pulmonary embolism. Normal thoracic aorta and visualized great vessels. There is no demonstrated aortic dissection. Normal heart and pericardium. There are reactive AP window lymph nodes measuring up to 1.5 cm. There is a subcarinal lymph node measuring 1.9 cm. There is left hilar lymphadenopathy measuring up to 3.1 x 1.7 cm. There is lymphadenopathy extending to the left lower lobe where there is dense focal consolidation. Normal visualized trachea and bronchi. Normal pleura. Normal chest wall structures. There are degenerative changes of thoracic spine. Hepatic steatosis. CT/CTA Chest W/WO Contrast IMPRESSION: Left lower lobe consolidation. Findings are considered atypical for Covid pneumonia which typically include multifocal groundglass opacities are not visualized on this study. Although Covid could be considered, This is a solitary focus of consolidation can associated with community acquired possible bacterial pneumonia. Lymphadenopathy in the left hilum. Recommend follow to clearing. No pulmonary embolism no aortic dissection. Electronically Signed: Eileen Reardon MD at 1:23 EST Tel , Service support ,
[2020-01-15 02:50] VITALS: BP 134/78; PULSE 94; RESP 18; TEMP 37.2; O2SAT 95
[2020-01-15 04:20] VITALS: BP 141/77; PULSE 104; RESP 17; TEMP 38.2; O2SAT 96
[2020-01-15] MEDS: Acetaminophen 325 MG Tablet 650 MG PO ×4 (04:20→20:39)
[2020-01-15] MEDS: guaiFENesin 10 ML UDC (200MG/10ML) 20 ML PO ×3 (04:21→20:24)
[2020-01-15] MEDS: BENZOCAINE/MENTHOL 1 LOZENGE MUCOUS MEM ×3 (05:24→20:25)
[2020-01-15 07:19] LABS: Hemoglobin 12.8 g/dL (13.0-16.5); Mean Corpuscular Hgb 27.1 pg (27.0-32.0); Mean Corpuscular Volume 84.6 fL (80-94); Mean Platelet Vol. 11.3 fl (6.2-12.0); Platelet Count 233 K/mm3 (150-450); RBC Distribution Width CV 13.9 % (11.6-14.6); RBC Distribution Width SD 43.6 fl (35.1-43.9); Red Blood Count 4.73 M/mm3 (4.6-6.2); White Blood Count 8.4 K/mm3 (4.4-11.0)
[2020-01-15 08:07] LABS: Anion Gap 8 (5-15); BUN 10 mg/dL (7-18); BUN/Creat Ratio 9.9 RATIO (10-20); Calcium,Total 8.4 mg/dL (8.5-10.1); Chloride 103 mmol/L (98-107); Creatinine, Serum 1.01 mg/dL (0.70-1.30); EST Glomerular Filtration Rate 97 mL/min (>60); Est Glom Filt Rate - Afr Amer 118 mL/min (>60); Estimated Creatinine Clearance 124.85 ml/min; Glucose 91 mg/dL (74-106); Magnesium 2.3 mg/dL (1.6-2.6); Potassium 3.5 mmol/L (3.5-5.1); Sodium Level 137 mmol/L (136-145)
--- NOTE | 2020-01-15 09:33 | CASEMGMT ---
Local PCP list to pt at this time via RN per pt request. SStdenis CARDENAS CM
[2020-01-15] MEDS: Famotidine 20 MG Tablet PO ×2 (09:35→21:58)
[2020-01-15] MEDS: Enoxaparin 40 MG/0.4 ML Syringe SC ×2 (09:35→21:58)
[2020-01-15 09:40] VITALS: BP 145/84; PULSE 102; RESP 16; TEMP 38.5; O2SAT 95
--- NOTE | 2020-01-15 12:13 | PCM.PROGNOTE ---
<[employer] - Last Filed: 01/15/20 12:37> Patient Problems: Active and Suspected Problems Sepsis (Acute) Suspected COVID-19 virus infection (Acute) Pneumonia (Acute) Subjective: Patient reports ongoing fever, cough, shortness of breath. Complains of intermittent nausea. Does not appear to be in distress. Oxygen stable on room air. - Physical Exam Vitals/I&O's: Vital Signs Temp Pulse Resp BP Pulse Ox 101.3 F H 102 H 16 145/84 H 95 01/15/20 09:40 01/15/20 09:40 01/15/20 09:40 01/15/20 09:40 01/15/20 09:40 Oxygen Delivery Method Room Air Weight: 315 lb 0.649 oz Body Mass Index (BMI) 42.7 Intake and Output for Last 24 Hours 01/13/20 01/14/20 01/15/20 23:59 23:59 23:59 Intake Total 1759.17 / 1759.17 4145.83 / 4145.83 150 / 150 Output Total Balance 1759.17 / 1759.17 4144.83 / 4144.83 150 / 150 General: Alert, Oriented x3, Cooperative HEENT: Atraumatic, PERRLA, EOMI, Normocephalic Neck: Supple, No JVD, Negative Carotid Bruits Lungs: Clear to auscultation, Diminished Cardiovascular: Regular rate, No murmurs Abdomen: Bowel Sounds Present, Soft, Non Tender, Non-Distended Extremities: No clubbing, No cyanosis, No edema, Capillary Refill Less than 3 Seconds Skin: No rashes, No breakdown Musculoskeletal: No Tenderness to Palpation of Joints or Extremities Neurological: Cranial nerves II-XII grossly intact, Neuro grossly intact Psych/Mental Status: Normal Affect, Appropriate Microbiology Past 72 Hours 01/14/20 00:45 Sputum, Expectorated/Coughed Gram Stain - Final 01/14/20 00:45 Sputum, Expectorated/Coughed Respiratory Culture - Preliminary Appears to be normal respiratory jigar. Further studies to follow. 01/14/20 00:35 Urine, Clean Catch Legionella Antigen - Final 01/14/20 00:35 Urine, Clean Catch Streptococcus pneumoniae Antigen (M - Final 01/13/20 18:18 Interface Orders Respiratory Panel (PCR) - Final Laboratory Results 01/13/20 17:55: B-Natriuretic Peptide 2.3 01/13/20 17:55: Procalcitonin 0.14 H 01/15/20 05:40: Sodium 137, Potassium 3.5, Chloride 103, Carbon Dioxide 26.0, Anion Gap 8, BUN 10, Creatinine 1.01, Estim Creat Clear Calc 124.85, Est GFR (MDRD) Af Amer 118, Est GFR (MDRD) Non-Af 97, BUN/Creatinine Ratio 9.9 L, Glucose 91, Calcium 8.4 L, Magnesium 2.3 01/15/20 06:20: WBC 8.4, RBC 4.73, Hgb 12.8 L, Hct 40.0, MCV 84.6, MCH 27.1, MCHC 32.0, RDW Std Deviation 43.6, RDW Coeff of Bulmaro 13.9, Plt Count 233, MPV 11.3 Current Medications Acetaminophen (Acetaminophen 325 Mg Tablet) 650 mg PO Q4H PRN PRN PRN Reason: Pain Score 1-10/Temp > 100.7 F Last Admin: 01/15/20 09:35 Dose: 650 mg Documented by: Al Hydroxide/Mg Hydroxide (Mag Hydrox/Al Hydrox/Simeth 30 Ml Udc) 30 ml PO Q6H PRN PRN PRN Reason: Gastric Burning Albuterol Sulfate (Albuterol Ih 8.5 Gm (Proair) Inhaler (200 Puffs)) 2 puff INHALATION Q4H PRN PRN PRN Reason: dyspnea, wheezing Enoxaparin Sodium (Enoxaparin 40 Mg/0.4 Ml Syringe) 40 mg SC BID [facility] Last Admin: 01/15/20 09:35 Dose: 40 mg Documented by: Famotidine (Famotidine 20 Mg Tablet) 20 mg PO BID [facility] Last Admin: 01/15/20 09:35 Dose: 20 mg Documented by: Guaifenesin (Guaifenesin 10 Ml Udc (200mg/10ml)) 20 ml PO Q4H PRN PRN PRN Reason: COUGH Last Admin: 01/15/20 04:21 Dose: 20 ml Documented by: Ceftriaxone Sodium 2 gm/ (Sodium Chloride) 50 mls @ 100 mls/hr IV Q24H [facility] Last Infusion: 01/14/20 21:48 Dose: Infused Documented by: Sodium Chloride () 250 mls @ 15 mls/hr IV .[id number] PRN PRN Reason: Saline Flush Sodium Chloride () 250 mls @ 15 mls/hr IV .[id number] PRN PRN Reason: Additional IVPB Infusion Magnesium Hydroxide (Magnesium Hydroxide 30 Ml Udc) 30 ml PO DAILY PRN PRN PRN Reason: Constipation Melatonin (Melatonin 3 Mg Tablet) 3 mg PO QHS PRN PRN PRN Reason: INSOMNIA Last Admin: 01/14/20 22:24 Dose: 3 mg Documented by: Ondansetron HCl (Ondansetron 4 Mg/2 Ml Vial) 4 mg IV Q8H PRN PRN PRN Reason: NAUSEA/VOMITING Last Admin: 01/14/20 00:37 Dose: 4 mg Documented by: Prochlorperazine Edisylate (Prochlorperazine 10 Mg/2 Ml Vial) 5 mg IV Q4H PRN PRN PRN Reason: Breakthrough nausea/vomiting Psyllium Hydrophilic Mucilloid (Psyllium 1 Packet) 1 packet PO DAILY PRN PRN PRN Reason: Constipation Senna/Docusate Sodium (Senna/Docusate Sodium 1 Tablet) 2 tablet PO BID PRN PRN PRN Reason: Constipation Sodium Chloride (0.9% Saline Lock 10 Ml Syringe) 10 - 40 ml IV UD PRN PRN Reason: SALINE FLUSH Last Admin: 01/14/20 22:24 Dose: 20 ml Documented by: Throat Lozenges (Benzocaine/Menthol 1 Lozenge) 1 lozenge MUCOUS MEM Q2H PRN PRN PRN Reason: SORE THROAT Last Admin: 01/15/20 05:24 Dose: 1 lozenge Documented by: Medical Necessity - Tobacco Use Smoking Status: Never smoker Tobacco Use: Non-smoker Assessment/Plan All Active Problems Sepsis (Acute) Suspected COVID-19 virus infection (Acute) Pneumonia (Acute) 1. Acute sepsis secondary to suspected viral pneumonia/[id number] of chest shows left lower lobe consolidation. Negative for PE. Covid negative however less than 48 hours symptom onset. Infectious disease consulted. Continue IV Rocephin empirically however less likely bacterial pneumonia. As needed albuterol inhaler. Plan for repeat Covid testing over the weekend. 2. Mild dehydration- resolved with IV fluids. 3. Bipolar disorder-not on regimen. 4. Intermittent cannabis use-encouraged cessation. 5. Morbid obesity-encouraged diet and lifestyle modifications. DVT prophylaxis-SCDs, Lovenox This patient was seen by [facility] Hanley under the supervision of Dr. García. <Melvin García - Last Filed: 01/15/20 15:04> - Physical Exam Vitals/I&O's: Vital Signs Temp Pulse Resp BP Pulse Ox 101.0 F H 98 16 153/76 H 96 01/15/20 14:50 01/15/20 14:50 01/15/20 14:50 01/15/20 14:50 01/15/20 14:50 Oxygen Delivery Method Room Air Weight: 142.9 kg Body Mass Index (BMI) 42.7 Intake and Output for Last 24 Hours 01/13/20 01/14/20 01/15/20 23:59 23:59 23:59 Intake Total 1759.17 / 1759.17 4145.83 / 4145.83 750 / 750 Output Total Balance 1759.17 / 1759.17 4144.83 / 4144.83 750 / 750 Microbiology Past 72 Hours 01/14/20 00:45 Sputum, Expectorated/Coughed Gram Stain - Final 01/14/20 00:45 Sputum, Expectorated/Coughed Respiratory Culture - Preliminary Appears to be normal respiratory jigar. Further studies to follow. 01/14/20 00:35 Urine, Clean Catch Legionella Antigen - Final 01/14/20 00:35 Urine, Clean Catch Streptococcus pneumoniae Antigen (M - Final 01/13/20 18:18 Interface Orders Respiratory Panel (PCR) - Final Laboratory Results 01/15/20 05:40: Sodium 137, Potassium 3.5, Chloride 103, Carbon Dioxide 26.0, Anion Gap 8, BUN 10, Creatinine 1.01, Estim Creat Clear Calc 124.85, Est GFR (MDRD) Af Amer 118, Est GFR (MDRD) Non-Af 97, BUN/Creatinine Ratio 9.9 L, Glucose 91, Calcium 8.4 L, Magnesium 2.3 01/15/20 06:20: WBC 8.4, RBC 4.73, Hgb 12.8 L, Hct 40.0, MCV 84.6, MCH 27.1, MCHC 32.0, RDW Std Deviation 43.6, RDW Coeff of Bulmaro 13.9, Plt Count 233, MPV 11.3 Current Medications Acetaminophen (Acetaminophen 325 Mg Tablet) 650 mg PO Q4H PRN PRN PRN Reason: Pain Score 1-10/Temp > 100.7 F Last Admin: 01/15/20 14:57 Dose: 650 mg Documented by: Al Hydroxide/Mg Hydroxide (Mag Hydrox/Al Hydrox/Simeth 30 Ml Udc) 30 ml PO Q6H PRN PRN PRN Reason: Gastric Burning Albuterol Sulfate (Albuterol Ih 8.5 Gm (Proair) Inhaler (200 Puffs)) 2 puff INHALATION Q4H PRN PRN PRN Reason: dyspnea, wheezing Enoxaparin Sodium (Enoxaparin 40 Mg/0.4 Ml Syringe) 40 mg SC BID [facility] Last Admin: 01/15/20 09:35 Dose: 40 mg Documented by: Famotidine (Famotidine 20 Mg Tablet) 20 mg PO BID [facility] Last Admin: 01/15/20 09:35 Dose: 20 mg Documented by: Guaifenesin (Guaifenesin 10 Ml Udc (200mg/10ml)) 20 ml PO Q4H PRN PRN PRN Reason: COUGH Last Admin: 01/15/20 14:57 Dose: 20 ml Documented by: Ceftriaxone Sodium 2 gm/ (Sodium Chloride) 50 mls @ 100 mls/hr IV Q24H [facility] Last Infusion: 01/14/20 21:48 Dose: Infused Documented by: Sodium Chloride () 250 mls @ 15 mls/hr IV .[id number] PRN PRN Reason: Saline Flush Sodium Chloride () 250 mls @ 15 mls/hr IV .[id number] PRN PRN Reason: Additional IVPB Infusion Magnesium Hydroxide (Magnesium Hydroxide 30 Ml Udc) 30 ml PO DAILY PRN PRN PRN Reason: Constipation Melatonin (Melatonin 3 Mg Tablet) 3 mg PO QHS PRN PRN PRN Reason: INSOMNIA Last Admin: 01/14/20 22:24 Dose: 3 mg Documented by: Ondansetron HCl (Ondansetron 4 Mg/2 Ml Vial) 4 mg IV Q8H PRN PRN PRN Reason: NAUSEA/VOMITING Last Admin: 01/14/20 00:37 Dose: 4 mg Documented by: Prochlorperazine Edisylate (Prochlorperazine 10 Mg/2 Ml Vial) 5 mg IV Q4H PRN PRN PRN Reason: Breakthrough nausea/vomiting Psyllium Hydrophilic Mucilloid (Psyllium 1 Packet) 1 packet PO DAILY PRN PRN PRN Reason: Constipation Senna/Docusate Sodium (Senna/Docusate Sodium 1 Tablet) 2 tablet PO BID PRN PRN PRN Reason: Constipation Sodium Chloride (0.9% Saline Lock 10 Ml Syringe) 10 - 40 ml IV UD PRN PRN Reason: SALINE FLUSH Last Admin: 01/14/20 22:24 Dose: 20 ml Documented by: Throat Lozenges (Benzocaine/Menthol 1 Lozenge) 1 lozenge MUCOUS MEM Q2H PRN PRN PRN Reason: SORE THROAT Last Admin: 01/15/20 14:57 Dose: 1 lozenge Documented by: Assessment/Plan This patient was seen in conjunction with [facility] . I have independently interviewed and examined the patient and reviewed pertinent historical, laboratory, and other data. Please refer to [facility] Han[facility] note for details of this patient's presentation, findings, and recommendations. I have reviewed [facility] note and concur with documented findings. In brief, patient is 25-year-old gentleman admitted with cough fever aches nausea and generalized malaise. A suspicion of COVID-19 pneumonia was made. His COVID-19 assay was negative however suspicion remains high admitted to regular nursing floor with consultation placed infectious disease 01/15/2020: Patient seen no significant change in overall clinical condition. Patient apparently desaturated easily with activity. Physical Examination: GENERAL: Ill-looking HEENT: Atraumatic; EYES; Anicteric, Normal Conjunctiva NECK; supple, normal thyroid, RESPIRATORY: Diminished to auscultation CARDIOVASCULAR: Regular S1 S2, GI: soft, normoactive bowel sounds, : No Renal angle tenderness; EXTREMITIES: No edema, no clubbing, MUSCULOSKELETAL: no muscle waisting NEURO: Awake; no lateralizing signs. SKIN: No Rash PSYCH; Flat affect Assessment: 1. Suspected acute COVID-19 pneumonia 2. Sepsis secondary to #1 3. Bipolar disorder 4. Dehydration 5. Morbid obesity with BMI of 42.7 6. DVT prophylaxis Recommendations: 1. I have discussed the results of my overview and impressions with the patient 2. Options for management were reviewed Inpatient E&M: [id number] Subs Hosp L2
[2020-01-15 14:50] VITALS: BP 153/76; PULSE 98; RESP 16; TEMP 38.3; O2SAT 96
--- NOTE | 2020-01-15 16:14 | PN.ID_ITS ---
Patient Problems: Active and Suspected Problems Sepsis (Acute) Suspected COVID-19 virus infection (Acute) Pneumonia (Acute) Subjective: Feeling better in terms of cough, aches, fever. No sputum. - Physical Exam Vitals/I&O's: Vital Signs Temp Pulse Resp BP Pulse Ox 101.0 F H 98 16 153/76 H 96 01/15/20 14:50 01/15/20 14:50 01/15/20 14:50 01/15/20 14:50 01/15/20 14:50 Oxygen Delivery Method Room Air Weight: 142.9 kg Body Mass Index (BMI) 42.7 Intake and Output for Last 24 Hours 01/13/20 01/14/20 01/15/20 23:59 23:59 23:59 Intake Total 1759.17 / 1759.17 4145.83 / 4145.83 750 / 750 Output Total Balance 1759.17 / 1759.17 4144.83 / 4144.83 750 / 750 General: Alert, Cooperative Lungs: Diminished - coughing, no sputum Cardiovascular: Regular rate, Regular Rhythm Abdomen: Soft, Non Tender, Non-Distended Skin: No rashes Microbiology Past 72 Hours 01/14/20 00:45 Sputum, Expectorated/Coughed Gram Stain - Final 01/14/20 00:45 Sputum, Expectorated/Coughed Respiratory Culture - Preliminary Appears to be normal respiratory jigar. Further studies to follow. 01/14/20 00:35 Urine, Clean Catch Legionella Antigen - Final 01/14/20 00:35 Urine, Clean Catch Streptococcus pneumoniae Antigen (M - Final 01/13/20 18:18 Interface Orders Respiratory Panel (PCR) - Final Laboratory Results 01/15/20 05:40: Sodium 137, Potassium 3.5, Chloride 103, Carbon Dioxide 26.0, Anion Gap 8, BUN 10, Creatinine 1.01, Estim Creat Clear Calc 124.85, Est GFR (MDRD) Af Amer 118, Est GFR (MDRD) Non-Af 97, BUN/Creatinine Ratio 9.9 L, Glucose 91, Calcium 8.4 L, Magnesium 2.3 01/15/20 06:20: WBC 8.4, RBC 4.73, Hgb 12.8 L, Hct 40.0, MCV 84.6, MCH 27.1, MCHC 32.0, RDW Std Deviation 43.6, RDW Coeff of Bulmaro 13.9, Plt Count 233, MPV 11.3 Current Medications Acetaminophen (Acetaminophen 325 Mg Tablet) 650 mg PO Q4H PRN PRN PRN Reason: Pain Score 1-10/Temp > 100.7 F Last Admin: 01/15/20 14:57 Dose: 650 mg Documented by: Al Hydroxide/Mg Hydroxide (Mag Hydrox/Al Hydrox/Simeth 30 Ml Udc) 30 ml PO Q6H PRN PRN PRN Reason: Gastric Burning Albuterol Sulfate (Albuterol Ih 8.5 Gm (Proair) Inhaler (200 Puffs)) 2 puff INHALATION Q4H PRN PRN PRN Reason: dyspnea, wheezing Enoxaparin Sodium (Enoxaparin 40 Mg/0.4 Ml Syringe) 40 mg SC BID [facility] Last Admin: 01/15/20 09:35 Dose: 40 mg Documented by: Famotidine (Famotidine 20 Mg Tablet) 20 mg PO BID [facility] Last Admin: 01/15/20 09:35 Dose: 20 mg Documented by: Guaifenesin (Guaifenesin 10 Ml Udc (200mg/10ml)) 20 ml PO Q4H PRN PRN PRN Reason: COUGH Last Admin: 01/15/20 14:57 Dose: 20 ml Documented by: Ceftriaxone Sodium 2 gm/ (Sodium Chloride) 50 mls @ 100 mls/hr IV Q24H [facility] Last Infusion: 01/14/20 21:48 Dose: Infused Documented by: Sodium Chloride () 250 mls @ 15 mls/hr IV .[id number] PRN PRN Reason: Saline Flush Sodium Chloride () 250 mls @ 15 mls/hr IV .[id number] PRN PRN Reason: Additional IVPB Infusion Magnesium Hydroxide (Magnesium Hydroxide 30 Ml Udc) 30 ml PO DAILY PRN PRN PRN Reason: Constipation Melatonin (Melatonin 3 Mg Tablet) 3 mg PO QHS PRN PRN PRN Reason: INSOMNIA Last Admin: 01/14/20 22:24 Dose: 3 mg Documented by: Ondansetron HCl (Ondansetron 4 Mg/2 Ml Vial) 4 mg IV Q8H PRN PRN PRN Reason: NAUSEA/VOMITING Last Admin: 01/14/20 00:37 Dose: 4 mg Documented by: Prochlorperazine Edisylate (Prochlorperazine 10 Mg/2 Ml Vial) 5 mg IV Q4H PRN PRN PRN Reason: Breakthrough nausea/vomiting Psyllium Hydrophilic Mucilloid (Psyllium 1 Packet) 1 packet PO DAILY PRN PRN PRN Reason: Constipation Senna/Docusate Sodium (Senna/Docusate Sodium 1 Tablet) 2 tablet PO BID PRN PRN PRN Reason: Constipation Sodium Chloride (0.9% Saline Lock 10 Ml Syringe) 10 - 40 ml IV UD PRN PRN Reason: SALINE FLUSH Last Admin: 01/14/20 22:24 Dose: 20 ml Documented by: Throat Lozenges (Benzocaine/Menthol 1 Lozenge) 1 lozenge MUCOUS MEM Q2H PRN PRN PRN Reason: SORE THROAT Last Admin: 01/15/20 14:57 Dose: 1 lozenge Documented by: Medical Necessity - Tobacco Use Smoking Status: Never smoker Tobacco Use: Non-smoker Route of nutrition/ use of supplements: [] Nutritional Intake: [] IV Site: [] [place] Catheter: [] - Assessment/Plan Antibiotics: [] Assessment/Plan: [] Active and Suspected Problems Sepsis (Acute) Suspected COVID-19 virus infection (Acute) Pneumonia (Acute) Suspected covid with CAP - cxr and CT with focal infiltrate, but no sputum. UAg neg. Cont ceftriaxone for now. Not hypoxic, so will not start dex at this pantera e. On lovenox 40mg bid for proph with mild elevation in d-dimer. Ok for discharge from ID perspective, would do 3 more days of augmentin. Covid pcr here was neg. Can do repeat pcr tomorrow. Sx improved today. Will follow
[2020-01-15 20:25] VITALS: BP 151/82; PULSE 109; RESP 18; TEMP 38.6; O2SAT 96
[2020-01-15] MEDS: 0.9% Saline Lock 10 ML Syringe IV (21:58)
[2020-01-15] MEDS: MELATONIN 3 MG TABLET PO (21:58)
[2020-01-15 22:05] VITALS: TEMP 38.2
[2020-01-16 03:26] VITALS: BP 106/54; PULSE 83; RESP 16; TEMP 37.1; O2SAT 96
[2020-01-16 06:33] VITALS: TEMP 37.6
[2020-01-16] MEDS: guaiFENesin 10 ML UDC (200MG/10ML) 20 ML PO (06:33)
[2020-01-16] MEDS: Acetaminophen 325 MG Tablet 650 MG PO (06:33)
--- NOTE | 2020-01-16 08:00 | PCM.PN.HOSP ---
Patient Problems: Active and Suspected Problems Sepsis (Acute) Suspected COVID-19 virus infection (Acute) Pneumonia (Acute) Vitals/I&O's: Vital Signs Temp Pulse Resp BP Pulse Ox 99.6 F H 83 16 106/54 L 96 01/16/20 06:33 01/16/20 03:26 01/16/20 03:26 01/16/20 03:26 01/16/20 03:26 Oxygen Delivery Method Room Air Weight: 142.9 kg Body Mass Index (BMI) 42.7 Intake and Output for Last 24 Hours 01/14/20 01/15/20 01/16/20 23:59 23:59 23:59 Intake Total 4145.83 / 4145.83 1280 / 1580 420 / 420 Output Total Balance 4144.83 / 4144.83 1280 / 1580 420 / 420 Microbiology Past 72 Hours 01/15/20 Unknown Mucosa - Nasopharyngeal - Final 01/14/20 00:45 Sputum, Expectorated/Coughed Gram Stain - Final 01/14/20 00:45 Sputum, Expectorated/Coughed Respiratory Culture - Preliminary Appears to be normal respiratory jigar. Further studies to follow. 01/14/20 00:35 Urine, Clean Catch Legionella Antigen - Final 01/14/20 00:35 Urine, Clean Catch Streptococcus pneumoniae Antigen (M - Final 01/13/20 18:18 Interface Orders Respiratory Panel (PCR) - Final Laboratory Results 01/15/20 05:40: Sodium 137, Potassium 3.5, Chloride 103, Carbon Dioxide 26.0, Anion Gap 8, BUN 10, Creatinine 1.01, Estim Creat Clear Calc 124.85, Est GFR (MDRD) Af Amer 118, Est GFR (MDRD) Non-Af 97, BUN/Creatinine Ratio 9.9 L, Glucose 91, Calcium 8.4 L, Magnesium 2.3 Current Medications Acetaminophen (Acetaminophen 325 Mg Tablet) 650 mg PO Q4H PRN PRN PRN Reason: Pain Score 1-10/Temp > 100.7 F Last Admin: 01/16/20 06:33 Dose: 650 mg Documented by: Al Hydroxide/Mg Hydroxide (Mag Hydrox/Al Hydrox/Simeth 30 Ml Udc) 30 ml PO Q6H PRN PRN PRN Reason: Gastric Burning Albuterol Sulfate (Albuterol Ih 8.5 Gm (Proair) Inhaler (200 Puffs)) 2 puff INHALATION Q4H PRN PRN PRN Reason: dyspnea, wheezing Enoxaparin Sodium (Enoxaparin 40 Mg/0.4 Ml Syringe) 40 mg SC BID [facility] Last Admin: 01/15/20 21:58 Dose: 40 mg Documented by: Famotidine (Famotidine 20 Mg Tablet) 20 mg PO BID [facility] Last Admin: 01/15/20 21:58 Dose: 20 mg Documented by: Guaifenesin (Guaifenesin 10 Ml Udc (200mg/10ml)) 20 ml PO Q4H PRN PRN PRN Reason: COUGH Last Admin: 01/16/20 06:33 Dose: 20 ml Documented by: Ceftriaxone Sodium 2 gm/ (Sodium Chloride) 50 mls @ 100 mls/hr IV Q24H [facility] Last Infusion: 01/15/20 22:47 Dose: Infused Documented by: Sodium Chloride () 250 mls @ 15 mls/hr IV .[id number] PRN PRN Reason: Saline Flush Sodium Chloride () 250 mls @ 15 mls/hr IV .[id number] PRN PRN Reason: Additional IVPB Infusion Magnesium Hydroxide (Magnesium Hydroxide 30 Ml Udc) 30 ml PO DAILY PRN PRN PRN Reason: Constipation Melatonin (Melatonin 3 Mg Tablet) 3 mg PO QHS PRN PRN PRN Reason: INSOMNIA Last Admin: 01/15/20 21:58 Dose: 3 mg Documented by: Ondansetron HCl (Ondansetron 4 Mg/2 Ml Vial) 4 mg IV Q8H PRN PRN PRN Reason: NAUSEA/VOMITING Last Admin: 01/14/20 00:37 Dose: 4 mg Documented by: Prochlorperazine Edisylate (Prochlorperazine 10 Mg/2 Ml Vial) 5 mg IV Q4H PRN PRN PRN Reason: Breakthrough nausea/vomiting Psyllium Hydrophilic Mucilloid (Psyllium 1 Packet) 1 packet PO DAILY PRN PRN PRN Reason: Constipation Senna/Docusate Sodium (Senna/Docusate Sodium 1 Tablet) 2 tablet PO BID PRN PRN PRN Reason: Constipation Sodium Chloride (0.9% Saline Lock 10 Ml Syringe) 10 - 40 ml IV UD PRN PRN Reason: SALINE FLUSH Last Admin: 01/15/20 21:58 Dose: 10 ml Documented by: Throat Lozenges (Benzocaine/Menthol 1 Lozenge) 1 lozenge MUCOUS MEM Q2H PRN PRN PRN Reason: SORE THROAT Last Admin: 01/15/20 20:25 Dose: 1 lozenge Documented by: STROKE Vital Signs/Narrative: Vital Signs Temp 01/16/20 06:33 99.6 F H Medical Necessity - Tobacco Use Smoking Status: Never smoker Tobacco Use: Non-smoker Assessment/Plan All Active Problems Sepsis (Acute) Suspected COVID-19 virus infection (Acute) Pneumonia (Acute)
[2020-01-16 08:18] VITALS: BP 148/80; PULSE 93; RESP 17; TEMP 36.7; O2SAT 95
[2020-01-16] MEDS: Famotidine 20 MG Tablet PO (08:22)
[2020-01-16 08:26] LABS: Hematocrit 37.6 % (40-54); Hemoglobin 12.5 g/dL (13.0-16.5); Mean Corp Hgb Conc 33.2 g/dL (32-36); Mean Corpuscular Hgb 27.8 pg (27.0-32.0); Mean Corpuscular Volume 83.7 fL (80-94); Platelet Count 233 K/mm3 (150-450); RBC Distribution Width CV 13.5 % (11.6-14.6); RBC Distribution Width SD 41.5 fl (35.1-43.9); Red Blood Count 4.49 M/mm3 (4.6-6.2); White Blood Count 7.3 K/mm3 (4.4-11.0)
[2020-01-16 09:04] LABS: BUN 10 mg/dL (7-18); Calcium,Total 8.7 mg/dL (8.5-10.1); Chloride 105 mmol/L (98-107); Creatinine, Serum 0.91 mg/dL (0.70-1.30); EST Glomerular Filtration Rate 110 mL/min (>60); Est Glom Filt Rate - Afr Amer 133 mL/min (>60); Estimated Creatinine Clearance 138.57 ml/min; Glucose 90 mg/dL (74-106); Potassium 3.7 mmol/L (3.5-5.1); Sodium Level 136 mmol/L (136-145)
[2020-01-16 09:05] LABS: Anion Gap 6 (5-15)
--- NOTE | 2020-01-16 10:41 | PCM.DC ---
- Discharge Diagnoses Current Active Problems: Current Active and Chronic Problems Sepsis (Acute) Suspected COVID-19 virus infection (Acute) Pneumonia (Acute) Morbid obesity (Chronic) Bipolar disorder (Chronic) Cannabis use disorder, mild, abuse (Chronic) You will use the following diet at home:: No restrictions Discharge Activity: Return to Normal Activity Call your doctor if you observe: Fever of 101 or Higher, Shortness of breath Allergies/Adverse Reactions: Allergies No Known Allergies Allergy (Verified 01/13/20 22:15) Medications to take at Discharge Acetaminophen [Tylenol Tablet] 650 mg PO Q4H PRN PRN tablet 01/16/20 Amox/Clavulanate Tablet [Augmentin Tablet] 875 mg PO Q12H #6 tab 01/16/20 The following prescriptions were given: Amox/Clavulanate Tablet [Augmentin Tablet] 875 mg PO Q12H #6 tab Transmission Status: Pending to [facility] Primary Care Physician: Godfrey Lima MD [STAFF PHYSICIAN] - Please follow up with your Primary Care Physician in: 1 Week Test Results: Test results from this visit will be discussed in further detail at your follow-up appointment, if applicable. Proposed Discharge Date: 01/16/20
--- NOTE | 2020-01-16 10:48 | PCM.DC.SUM ---
<Heather Max WOOD CHOPPER - Last Filed: 01/16/20 11:02> Discharge Date and Diagnosis - Problem List Patient Problems: Active and Suspected Problems Sepsis (Acute) Suspected COVID-19 virus infection (Acute) Pneumonia (Acute) Date of Admission: 01/13/20 Date of Discharge: 01/16/20 - Primary Discharge Diagnosis Acute Problems: Active Problems 1. Acute sepsis secondary to suspected viral pneumonia/COVID-19 2. Mild dehydration 3. Bipolar disorder 4. Intermittent cannabis use 5. Morbid obesity - Secondary Discharge Diagnosis Chronic Problems: Chronic Problems Morbid obesity (Chronic) Bipolar disorder (Chronic) Cannabis use disorder, mild, abuse (Chronic) Hospital Course and Treatment Imaging Results: Diagnostic Data Chest X-Ray 01/13/20 18:35 IMPRESSION: Focal pulmonary opacity in the left lung base not present previously. This could represent focal atelectasis or infiltrate. Suggest CT scan for further evaluation. Electronically Signed: Bairon Chow MD at 18:57 EST , Service support , Chest CTA 01/14/20 23:42 IMPRESSION: Left lower lobe consolidation. Findings are considered atypical for Covid pneumonia which typically include multifocal groundglass opacities are not visualized on this study. Although Covid could be considered, This is a solitary focus of consolidation can associated with community acquired possible bacterial pneumonia. Lymphadenopathy in the left hilum. Recommend follow to clearing. No pulmonary embolism no aortic dissection. Electronically Signed: Eileen Reardon MD at 1:23 EST Tel , Service support , Dr. Ngo- ID Operations: None Procedures: None Summary of Care Provided: The patient is a 25 year old M admitted 01/13/2020 due to fever, body aches, nausea, cough. 1. Acute sepsis secondary to suspected viral pneumonia/[id number] of chest shows left lower lobe consolidation. Negative for PE. Covid negative X2. Infectious disease consulted. On IV Rocephin empirically during admission however less likely bacterial pneumonia. Discharge on Augmentin for 3 days to complete course. Patient significantly improved symptomatically. Oxygen has remained stable on room air. Patient will be discharged home to continue quarantine as recommended by [facility] protocols. 2. Mild dehydration- resolved with IV fluids. 3. Bipolar disorder-not on regimen. 4. Intermittent cannabis use-encouraged cessation. 5. Morbid obesity-encouraged diet and lifestyle modifications. General: Alert, Oriented x3, Cooperative HEENT: Atraumatic, PERRLA, EOMI, Normocephalic Neck: Supple, No JVD, Negative Carotid Bruits Lungs: Clear to auscultation, Diminished Cardiovascular: Regular rate, No murmurs Abdomen: Bowel Sounds Present, Soft, Non Tender, Non-Distended Extremities: No clubbing, No cyanosis, No edema, Capillary Refill Less than 3 Seconds Skin: No rashes, No breakdown Musculoskeletal: No Tenderness to Palpation of Joints or Extremities Neurological: Cranial nerves II-XII grossly intact, Neuro grossly intact Psych/Mental Status: Normal Affect, Appropriate Patient seen and examined prior to discharge. Physical assessment as noted above. Patient is stable for discharge with follow up recommendations as noted above. This patient was seen by [facility] under the supervision of Dr. García. Patient Problems: Active and Suspected Problems Sepsis (Acute) Suspected COVID-19 virus infection (Acute) Pneumonia (Acute) - Physical Exam Vitals/I&O's: Vital Signs Temp Pulse Resp BP Pulse Ox 98.1 F 93 17 148/80 H 95 01/16/20 08:18 01/16/20 08:18 01/16/20 08:18 01/16/20 08:18 01/16/20 08:18 Oxygen Delivery Method Room Air Weight: 315 lb 0.649 oz Body Mass Index (BMI) 42.7 Intake and Output for Last 24 Hours 01/14/20 01/15/20 01/16/20 23:59 23:59 23:59 Intake Total 4145.83 / 4145.83 1280 / 1580 420 / 420 Output Total Balance 4144.83 / 4144.83 1280 / 1580 420 / 420 Microbiology Past 72 Hours 01/14/20 00:45 Sputum, Expectorated/Coughed Gram Stain - Final 01/14/20 00:45 Sputum, Expectorated/Coughed Respiratory Culture - Final 01/15/20 Unknown Mucosa - Nasopharyngeal - Final 01/14/20 00:35 Urine, Clean Catch Legionella Antigen - Final 01/14/20 00:35 Urine, Clean Catch Streptococcus pneumoniae Antigen (M - Final 01/13/20 18:18 Interface Orders Respiratory Panel (PCR) - Final Laboratory Results 01/16/20 08:11: WBC 7.3, RBC 4.49 L, Hgb 12.5 L, Hct 37.6 L, MCV 83.7, MCH 27.8, MCHC 33.2, RDW Std Deviation 41.5, RDW Coeff of Bulmaro 13.5, Plt Count 233, MPV 11.0 01/16/20 08:11: Sodium 136, Potassium 3.7, Chloride 105, Carbon Dioxide 25.0, Anion Gap 6, BUN 10, Creatinine 0.91, Estim Creat Clear Calc 138.57, Est GFR (MDRD) Af Amer 133, Est GFR (MDRD) Non-Af 110, BUN/Creatinine Ratio 11.0, Glucose 90, Calcium 8.7 Current Medications Acetaminophen (Acetaminophen 325 Mg Tablet) 650 mg PO Q4H PRN PRN PRN Reason: Pain Score 1-10/Temp > 100.7 F Last Admin: 01/16/20 06:33 Dose: 650 mg Documented by: Al Hydroxide/Mg Hydroxide (Mag Hydrox/Al Hydrox/Simeth 30 Ml Udc) 30 ml PO Q6H PRN PRN PRN Reason: Gastric Burning Albuterol Sulfate (Albuterol Ih 8.5 Gm (Proair) Inhaler (200 Puffs)) 2 puff INHALATION Q4H PRN PRN PRN Reason: dyspnea, wheezing Enoxaparin Sodium (Enoxaparin 40 Mg/0.4 Ml Syringe) 40 mg SC BID [facility] Last Admin: 01/15/20 21:58 Dose: 40 mg Documented by: Famotidine (Famotidine 20 Mg Tablet) 20 mg PO BID [facility] Last Admin: 01/16/20 08:22 Dose: 20 mg Documented by: Guaifenesin (Guaifenesin 10 Ml Udc (200mg/10ml)) 20 ml PO Q4H PRN PRN PRN Reason: COUGH Last Admin: 01/16/20 06:33 Dose: 20 ml Documented by: Ceftriaxone Sodium 2 gm/ (Sodium Chloride) 50 mls @ 100 mls/hr IV Q24H [facility] Last Infusion: 01/15/20 22:47 Dose: Infused Documented by: Sodium Chloride () 250 mls @ 15 mls/hr IV .[id number] PRN PRN Reason: Saline Flush Sodium Chloride () 250 mls @ 15 mls/hr IV .[id number] PRN PRN Reason: Additional IVPB Infusion Magnesium Hydroxide (Magnesium Hydroxide 30 Ml Udc) 30 ml PO DAILY PRN PRN PRN Reason: Constipation Melatonin (Melatonin 3 Mg Tablet) 3 mg PO QHS PRN PRN PRN Reason: INSOMNIA Last Admin: 01/15/20 21:58 Dose: 3 mg Documented by: Ondansetron HCl (Ondansetron 4 Mg/2 Ml Vial) 4 mg IV Q8H PRN PRN PRN Reason: NAUSEA/VOMITING Last Admin: 01/14/20 00:37 Dose: 4 mg Documented by: Prochlorperazine Edisylate (Prochlorperazine 10 Mg/2 Ml Vial) 5 mg IV Q4H PRN PRN PRN Reason: Breakthrough nausea/vomiting Psyllium Hydrophilic Mucilloid (Psyllium 1 Packet) 1 packet PO DAILY PRN PRN PRN Reason: Constipation Senna/Docusate Sodium (Senna/Docusate Sodium 1 Tablet) 2 tablet PO BID PRN PRN PRN Reason: Constipation Sodium Chloride (0.9% Saline Lock 10 Ml Syringe) 10 - 40 ml IV UD PRN PRN Reason: SALINE FLUSH Last Admin: 01/15/20 21:58 Dose: 10 ml Documented by: Throat Lozenges (Benzocaine/Menthol 1 Lozenge) 1 lozenge MUCOUS MEM Q2H PRN PRN PRN Reason: SORE THROAT Last Admin: 01/15/20 20:25 Dose: 1 lozenge Documented by: Discharge Diet: 1800 Calorie Control Diet Discharge Activity: Return to Normal Activity Call your doctor if you observe: Fever of 101 or Higher, Shortness of breath Home Medications: Medications to take at Discharge Acetaminophen [Tylenol Tablet] 650 mg PO Q4H PRN PRN tab 01/16/20 Amox/Clavulanate Tablet [Augmentin Tablet] 875 mg PO Q12H #6 tab 01/16/20 Following Prescriptions Were Given to Patient: Amox/Clavulanate Tablet [Augmentin Tablet] 875 mg PO Q12H #6 tab Transmission Status: Received by [facility] Primary Care Physician: Godfrey Lima MD [STAFF PHYSICIAN] - Please follow up with your Primary Care Physician in: 1 Week Disposition: Home Minutes spent on discharge:: 35 Patient Condition:: Stable Medical Necessity - Tobacco Use Smoking Status: Never smoker Tobacco Use: Non-smoker Meaningful Use Info Meaningful Use Diagnoses (Choose all that apply): None applicable <Melvin García - Last Filed: 01/16/20 11:47> Discharge Date and Diagnosis - Primary Discharge Diagnosis Acute Problems: Active Problems Sepsis (Acute) Suspected COVID-19 virus infection (Acute) Pneumonia (Acute) - Secondary Discharge Diagnosis Chronic Problems: Chronic Problems Morbid obesity (Chronic) Bipolar disorder (Chronic) Cannabis use disorder, mild, abuse (Chronic) Hospital Course and Treatment Summary of Care Provided: This patient was seen in conjunction with [facility] . I have independently interviewed and examined the patient and reviewed pertinent historical, laboratory, and other data. Please refer to [facility] note for details of this patient's presentation, findings, and recommendations. I have reviewed [facility] note and concur with documented findings. In brief, patient is 25-year-old gentleman admitted with cough fever aches nausea and generalized malaise. A suspicion of COVID-19 pneumonia was made. His COVID-19 assay was negative however suspicion remained high admitted to regular nursing floor with consultation placed infectious disease Hospital Course: As documented above - Physical Exam Vitals/I&O's: Vital Signs Temp Pulse Resp BP Pulse Ox 98.1 F 93 17 148/80 H 95 01/16/20 08:18 01/16/20 08:18 01/16/20 08:18 01/16/20 08:18 01/16/20 08:18 Oxygen Delivery Method Room Air Weight: 142.9 kg Body Mass Index (BMI) 42.7 Intake and Output for Last 24 Hours 01/14/20 01/15/20 01/16/20 23:59 23:59 23:59 Intake Total 4145.83 / 4145.83 1280 / 1580 420 / 420 Output Total Balance 4144.83 / 4144.83 1280 / 1580 420 / 420 Microbiology Past 72 Hours 01/14/20 00:45 Sputum, Expectorated/Coughed Gram Stain - Final 01/14/20 00:45 Sputum, Expectorated/Coughed Respiratory Culture - Final 01/15/20 Unknown Mucosa - Nasopharyngeal - Final 01/14/20 00:35 Urine, Clean Catch Legionella Antigen - Final 01/14/20 00:35 Urine, Clean Catch Streptococcus pneumoniae Antigen (M - Final 01/13/20 18:18 Interface Orders Respiratory Panel (PCR) - Final Laboratory Results 01/16/20 08:11: WBC 7.3, RBC 4.49 L, Hgb 12.5 L, Hct 37.6 L, MCV 83.7, MCH 27.8, MCHC 33.2, RDW Std Deviation 41.5, RDW Coeff of Bulmaro 13.5, Plt Count 233, MPV 11.0 01/16/20 08:11: Sodium 136, Potassium 3.7, Chloride 105, Carbon Dioxide 25.0, Anion Gap 6, BUN 10, Creatinine 0.91, Estim Creat Clear Calc 138.57, Est GFR (MDRD) Af Amer 133, Est GFR (MDRD) Non-Af 110, BUN/Creatinine Ratio 11.0, Glucose 90, Calcium 8.7 Current Medications Acetaminophen (Acetaminophen 325 Mg Tablet) 650 mg PO Q4H PRN PRN PRN Reason: Pain Score 1-10/Temp > 100.7 F Last Admin: 01/16/20 06:33 Dose: 650 mg Documented by: Al Hydroxide/Mg Hydroxide (Mag Hydrox/Al Hydrox/Simeth 30 Ml Udc) 30 ml PO Q6H PRN PRN PRN Reason: Gastric Burning Albuterol Sulfate (Albuterol Ih 8.5 Gm (Proair) Inhaler (200 Puffs)) 2 puff INHALATION Q4H PRN PRN PRN Reason: dyspnea, wheezing Enoxaparin Sodium (Enoxaparin 40 Mg/0.4 Ml Syringe) 40 mg SC BID [facility] Last Admin: 01/16/20 10:54 Dose: Not Given Documented by: Famotidine (Famotidine 20 Mg Tablet) 20 mg PO BID [facility] Last Admin: 01/16/20 08:22 Dose: 20 mg Documented by: Guaifenesin (Guaifenesin 10 Ml Udc (200mg/10ml)) 20 ml PO Q4H PRN PRN PRN Reason: COUGH Last Admin: 01/16/20 06:33 Dose: 20 ml Documented by: Ceftriaxone Sodium 2 gm/ (Sodium Chloride) 50 mls @ 100 mls/hr IV Q24H [facility] Last Infusion: 01/15/20 22:47 Dose: Infused Documented by: Sodium Chloride () 250 mls @ 15 mls/hr IV .[id number] PRN PRN Reason: Saline Flush Sodium Chloride () 250 mls @ 15 mls/hr IV .[id number] PRN PRN Reason: Additional IVPB Infusion Magnesium Hydroxide (Magnesium Hydroxide 30 Ml Udc) 30 ml PO DAILY PRN PRN PRN Reason: Constipation Melatonin (Melatonin 3 Mg Tablet) 3 mg PO QHS PRN PRN PRN Reason: INSOMNIA Last Admin: 01/15/20 21:58 Dose: 3 mg Documented by: Ondansetron HCl (Ondansetron 4 Mg/2 Ml Vial) 4 mg IV Q8H PRN PRN PRN Reason: NAUSEA/VOMITING Last Admin: 01/14/20 00:37 Dose: 4 mg Documented by: Prochlorperazine Edisylate (Prochlorperazine 10 Mg/2 Ml Vial) 5 mg IV Q4H PRN PRN PRN Reason: Breakthrough nausea/vomiting Psyllium Hydrophilic Mucilloid (Psyllium 1 Packet) 1 packet PO DAILY PRN PRN PRN Reason: Constipation Senna/Docusate Sodium (Senna/Docusate Sodium 1 Tablet) 2 tablet PO BID PRN PRN PRN Reason: Constipation Sodium Chloride (0.9% Saline Lock 10 Ml Syringe) 10 - 40 ml IV UD PRN PRN Reason: SALINE FLUSH Last Admin: 01/15/20 21:58 Dose: 10 ml Documented by: Throat Lozenges (Benzocaine/Menthol 1 Lozenge) 1 lozenge MUCOUS MEM Q2H PRN PRN PRN Reason: SORE THROAT Last Admin: 01/15/20 20:25 Dose: 1 lozenge Documented by: Inpatient E&M: [id number] Disch Hosp
== END 2020-01-16 12:46 | disposition home or self-care (01) | DRG 871 ==
LOC: ED 18:29 → PCU 01-14 06:24
PROVIDERS: Admitting Provider Family Medicine; Emergency Provider Emergency Medicine; Visit Provider Internal Medicine
DX: A41.9 Sepsis, unspecified organism (principal); J18.9 Pneumonia, unspecified organism; Z68.41 Body mass index [BMI] 40.0-44.9, adult; E87.1 Hypo-osmolality and hyponatremia; E86.0 Dehydration; F31.9 Bipolar disorder, unspecified; E66.01 Morbid (severe) obesity due to excess calories; F12.10 Cannabis abuse, uncomplicated
CPT/HCPCS: 36415; 71045; 71275; 80048; 80053; 82728; 83605; 83615; 83735; 83880; 84145; 84484; 85025; 85027; 85379; 85384; 85610; 86140; 87070; 87205; 87426; 87449; 87633; 87635; 94640; 97802; 99251; 99285; J7030; Q9967; A4216; G0463; J0696; J2405; U0002

== ENCOUNTER → 2020-06-01 10:20 | Outpatient (CLI) | payer BC, SELFPAY ==
[2020-01-13 22:03] VITALS: BMI 42.7
[2020-06-01 12:54] LABS: Cholesterol 202 mg/dL (200); High Density Lipoprotein 51 mg/dL; Triglycerides 74 mg/dL; Very Low Density Lipoprotein 15 mg/dL (5-40)
== END ==
PROVIDERS: PCP Family Medicine; Referring Provider Family Medicine; Visit Provider Family Medicine
DX: R07.89 Other chest pain (principal)
CPT/HCPCS: 36415; 80061

== ENCOUNTER 2020-06-02 20:09 | Emergency (ER) | payer BC, SELFPAY ==
[2020-01-13 22:03] VITALS: BMI 42.7
[2020-06-02 20:10] VITALS: BP 162/79; PULSE 96; RESP 16; TEMP 36.8; O2SAT 100; BMI 45.1
--- NOTE | 2020-06-02 20:16 | ED.VIS.GEN ---
History of Present Illness Chief Complaint: Chest Pain Detail of Chief Complaint: Left sided chest pain Informant: Patient Onset: Days Context: Sudden Onset Timing: Intermittent Quality: Pain Location: Initially inferior left scapula presently anterior left chest Current Severity: Mild Maximum Severity: Moderate - Breathing Worsened by: Breathing and movement Relieved by: Better if he remains still and holds his breath Associated Symptoms: No associated symptoms Narrative: It is a 25-year-old male with no significant past medical history on no medication who does not smoke and has not used marijuana for a long time or had alcohol in several months. He presents with left-sided anterior chest pain. The pain is worse with breathing. He denies history of VTE. He denies leg pain, swelling discoloration. He has no risk factors for VTE. He denies rhinorrhea, congestion or sore throat. He denies headache, photophobia or auditory symptoms. He denies rash. He denies trauma. He denies GI symptoms. He is concerned he is having a heart attack because there is family history of heart problems. Paternal grandfather had triple bypass surgery at the age of 60. Father has history of cardiovascular disease. He is not had an SC, however. Prior similar symptoms: No Recent Illness/Hospitalization: No - Past Medical History (1) History of anxiety Status: Acute (2) Bipolar disorder Status: Chronic (3) Cannabis use disorder, mild, abuse Status: Chronic (4) Morbid obesity Status: Chronic Past Medical History - Allergies and Home Meds Allergies/Adverse Reactions: Allergies No Known Allergies Allergy (Verified 06/02/20 20:10) Primary Care Physician: Pamela Coyle MD [Primary Care Provider] - Prior records reviewed: Yes Surgical History: no surgical history Lives: With Family Smoking Status: Never smoker Alcohol: Rare Drugs: Marijuana - Family History Maternal Family History: Reports: - - Mother with a history of thyroid disease. Paternal Family History: Reports: High Cholesterol, Hypertension Review of Systems General: Denies: Chills, Fever, Malaise, Subjective, Sweats ENT: Denies: Rhinorrhea, Sore throat Cardiovascular: Reports: Chest pain Respiratory: Denies: Dyspnea, Cough, Dyspnea on exertion Gastrointestinal: Denies: Abdominal pain, Nausea, Vomiting, Diarrhea, Melena, Hematochezia Musculoskeletal: Denies: Myalgias, Arthralgias, Neck pain, Back pain, Swelling, Extremity Pain, -, - Neurological: Denies: Headache Psych: Reports: Anxiety Endocrine: Denies: Polyuria, Polydipsia Physical Exam Vital Signs/Narrative: Vital Signs Temp Pulse Resp BP Pulse Ox 06/02/20 20:10 98.3 F 96 16 162/79 H 100 Inital Vital Signs reviewed: Yes General: Well nourished, Well developed, Obese, No Acute Distress Head: Normocephalic, Atraumatic Eyes: Perrl, EOMI. Negative for: Pale conjunctiva, Scleral icterus ENT: Moist mucous membranes, No rhinorrhea, TM's clear Neck: Supple, Nontender Cardiovascular: Regular rate, Regular rhythm, No murmurs, Normal S1, Normal S2 Respiratory: No distress, CTA bilaterally, Chest tenderness - Chest pain left side over the fourth fifth intercostal space. This reproduces his pain. Back: Nontender, Normal Inspection Extremities: Nontender, No edema, - - There is no asymmetry, swelling, discoloration, leg vein distention, palpable cords or tenderness along the distribution of the deep venous system. Skin: Normal color, No rash, No Trauma. Negative for: Cyanosis, Diaphoresis, Jaundice Neurological: Alert, Oriented x3, Cranial nerves II-XII grossly intact, Normal Strength, Normal Sensation Psychological: - - Patient appears anxious. Diagnostic/Tx/Re-eval - Medical Decision Making With pain worse with breathing and reproducible over the fourth fifth left intercostal space patient has costochondritis. Patient has no contraindication to NSAIDs. Laboratory testing and imaging is not required. ED Disposition - Plan for ED Patient: Disposition: Home or Assisted Living Diagnosis: Acute costochondritis Instructions: ED Chest Wall Pain, Costochondritis Prescriptions: Naproxen [Naprosyn] 500 mg PO BID #14 tablet Transmission Status: Pending to [id number] Referrals: Pamela Coyle MD [Primary Care Provider] - 1 Week if not improving
[2020-06-02] MEDS: Naproxen 250 MG Tablet 500 MG PO (20:26)
[2020-06-02 20:40] VITALS: BP 165/79; PULSE 96; RESP 16; O2SAT 100
== END 2020-06-02 20:40 | disposition home or self-care (01) ==
PROVIDERS: Emergency Provider Emergency Medicine; PCP Family Medicine
DX: M94.0 Chondrocostal junction syndrome [Tietze] (principal); E66.01 Morbid (severe) obesity due to excess calories
CPT/HCPCS: 99283

== ENCOUNTER → 2020-06-03 09:59 | Outpatient (CLI) | payer BC, SELFPAY ==
[2020-01-13 22:03] VITALS: BMI 42.7
[2020-06-02 20:10] VITALS: BMI 45.1
--- NOTE | 2020-06-03 17:35 | STRESSREP_ITS ---
Stress Test Report Exercise stress test. 25-year-old man with a history of chest pain. Stress protocol: Resting KG demonstrates normal sinus rhythm with a rate of 81 bpm normal intervals are noted resting blood pressure is 1 and 32 over 70 mmHg. The patient exercised according to regular Evan protocol for a total duration of 7 minutes and 30 seconds. The maximum heart rate attained was 169 bpm which was 85% of max impacted heart rate the maximum workload was 9.2 metabolic equivalents. At rest there were no ST or T wave changes noted to suggest isc hemia and at peak exercise upsloping ST changes were noted with no meet the criteria for ischemia. No clinical angina was noted the test was terminated due to leg fatigue. Dyspnea was also noted. The peak blood pressure was 182/70 mmHg. No arrhythmias were noted. Conclusion: Exercise stress test with no EKG criteria for ischemia at a high workload. Good functional aerobic capacity. No arrhythmias noted. No angina present.
== END ==
PROVIDERS: PCP Family Medicine; Referring Provider Family Medicine; Visit Provider Family Medicine
DX: R07.89 Other chest pain (principal)
CPT/HCPCS: 93017

== ENCOUNTER → 2020-11-09 | Outpatient (CLI) | payer BC, SELFPAY | END | disposition home or self-care (01) | LOC: LABSPEC 16:12 | PROVIDERS: PCP Family Medicine; Referring Provider Physician Assistant; Visit Provider Physician Assistant | DX: Z11.52 Encounter for screening for COVID-19 (principal) | CPT/HCPCS: 87635; U0005; U0003 ==